=== PATIENT | male | born 1960 | race Caucasian/White ===

== ENCOUNTER 2019-03-08 20:27 | Emergency (ER) | payer BC, OTHER ==
[2019-03-08 20:54] LABS: Absolute Lymphocytes (CBC) 1.3 K/uL (0.7-4.9); Absolute Monocytes 0.2 K/uL (0.1-1.3); Absolute Neutrophil 2.5 K/uL (1.8-8.0); Eosinophils % 1.4 % (0-4.4); Hematocrit 38.6 % (39.6-49.0); Lymphocytes % 30.9 % (15.3-44.8); MPV 8.4 fL (7.6-11.3); Monocytes % 5.9 % (3.3-12.3); RBC Red Blood Cell Count 4.09 M/uL (4.33-5.43)
[2019-03-08 21:12] LABS: Protime INR 0.95
[2019-03-08] MEDS ORDERED: THIAMINE 200 MG/2 ML INJ ONE ×2 (21:21→22:38)
[2019-03-08] MEDS ORDERED: ONDANSETRON 4 MG/2 ML VIAL ONE (21:21)
[2019-03-08] MEDS ORDERED: NA CHLORIDE 0.9% 1,000 ML ONE ×2 (21:22→22:40)
[2019-03-08] MEDS ORDERED: FAMOTIDINE 20 MG/2 ML VIAL IV ONE (21:22)
[2019-03-08 21:23] LABS: Barbiturates NEGATIVE (NEGATIVE); Benzodiazepines NEGATIVE (NEGATIVE); Cocaine NEGATIVE (NEGATIVE); METHAMPHETAM NEGATIVE (NEGATIVE); Methadone NEGATIVE (NEGATIVE); Opiates NEGATIVE (NEGATIVE); Phencyclidine NEGATIVE (NEGATIVE); THC Cannibis NEGATIVE (NEGATIVE)
[2019-03-08 21:28] LABS: ALT/SGPT 32 U/L (12-78); Albumin 3.4 g/dL (3.4-5.0); Alkaline Phosphatase 46 U/L (45-117); BUN Blood Urea Nitrogen 10 mg/dL (7-18); Bicarbonate 21 mmol/L (21-32); Bilirubin Total 0.2 mg/dL (0.2-1.0); Glucose Level 113 mg/dL (74-106); NT PRO-BNP 13 pg/mL (<125); Protein, Total 6.5 g/dL (6.4-8.2); Sodium Level 148 mmol/L (136-145); Troponin (Emerg Dept Use Only) < 0.02 ng/mL (0.0-0.045)
[2019-03-08 21:29] LABS: AST/SGOT 36 U/L (15-37); Bilirubin Direct < 0.1 mg/dL (0-0.2); Magnesium 2.3 mg/dL (1.8-2.4); Potassium 3.4 mmol/L (3.5-5.1)
--- NOTE | 2019-03-08 22:32 | ER ---
Nurse's Notes [facility] Name: Gregg Olea Age: 58 yrs Sex: Male : 1960 Arrival Date: 03/08/2019 Time: 20:31 Bed 20 Private MD: Diagnosis: Suicidal ideations;Alcohol abuse;Alcohol abuse with intoxication Presentation: 03/08 20:33 Presenting complaint: EMS states: they were toned out for report of pt being drunk and bb taking 4 mgs of klonopin in a suicide attempt according to pt' spouse. Transition of care: patient was not received from another setting of care. Onset of symptoms was March 08, 2019. Risk Assessment: Do you want to hurt yourself or someone else? Patient reports desire/thoughts of hurting themselves or someone else. Provider notified. Initial Sepsis Screen: Does the patient meet any 2 criteria? No. Patient's initial sepsis screen is negative. Does the patient have a suspected source of infection? No. Patient's initial sepsis screen is negative. Care prior to arrival: Medication(s) given: Normal saline infusion, 1000 mL, zofran 4 mg, IV initiated. 18 GA, in the right forearm. 20:33 Method Of Arrival: EMS: [facility] bb 20:33 Acuity: EMILY 2 bb Historical: - Allergies: 20:56 Red Dye; bb - Home Meds: 22:20 Klonopin Oral [Active]; bb - PMHx: 22:20 Hypertension; anxiety; bb - PSHx: 20:56 acl; rotator cuff; bb - Immunization history:: Adult Immunizations unknown. - Social history:: Smoking status: unknown Patient uses alcohol, patient/guardian reports chronic longstanding heavy alcohol consumption. patient/guardian reports recent binge of alcohol consumption. - Family history:: not pertinent. - Ebola Screening: : No symptoms or risks identified at this time. Screenin:23 Abuse screen: Denies threats or abuse. Denies injuries from another. Nutritional ak1 screening: No deficits noted. Tuberculosis screening: No symptoms or risk factors identified. Fall Risk IV access (20 points). Gait- Impaired (20 pts.). Assessment: 21:23 General: Appears in no apparent distress. comfortable, Behavior is drowsy, non verbal ak1 at this time.. Pain: Denies pain. Neuro: Level of Consciousness is obeys commands, lethargic, Oriented to person, place, situation, pt answers 'yes and no" questions via nod and shaking his head. pt is very lethargic. . Cardiovascular: No deficits noted. Respiratory: Airway is patent Trachea midline Respiratory effort is even, unlabored, relaxed, Breath sounds are clear bilaterally. GI: Abdomen is round non-distended, Bowel sounds present X 4 quads. Abd is soft and non tender X 4 quads. : No signs and/or symptoms were reported regarding the genitourinary system. EENT: No signs and/or symptoms were reported regarding the EENT system. Derm: No signs and/or symptoms reported regarding the dermatologic system. Musculoskeletal: No signs and/or symptoms reported regarding the musculoskeletal system. 21:31 Reassessment: pt non verbal, responded with head nod when asked if he took pills and ak1 had alcohol to harm himself. sitter at bedside. 21:38 Reassessment: poison control contacted. recommended to watch for [employer] depression and ak1 respiratory depression. keep head of bed elevated. 22:08 Reassessment: Patient appears in no apparent distress at this time. No changes from ak1 previously documented assessment. family at the bedside. 23:09 Reassessment: pt stated to this nurse he "wants to " pt at bedside shows a ak1 photo of pt naked with alcohol, pills and a shot gun at the bedside. pt wants help. pt is tearful. pt is awake and alert with slurred slow speech. 23:18 Reassessment: Patient and/or family updated on plan of care and expected duration. Pain ed1 level reassessed. Pt moved via stretcher to room 20. at bedside. Sitter accompanied pt. Patient denies pain at this time. Neuro: Level of Consciousness is obeys commands, lethargic, Oriented to person. Respiratory: Airway is patent Respiratory effort is even, unlabored, Respiratory pattern is regular, symmetrical. 03/09 00:38 Reassessment: Patient appears in no apparent distress at this time. Patient and/or ed1 family updated on plan of care and expected duration. Pain level reassessed. Patient is alert, oriented x 3, equal unlabored respirations, skin warm/dry/pink. Patient denies pain at this time. 02:17 Reassessment: Patient appears in no apparent distress at this time. Patient and/or ed1 family updated on plan of care and expected duration. Pain level reassessed. Patient is alert, oriented x 3, equal unlabored respirations, skin warm/dry/pink. Patient denies pain at this time. Respiratory: Airway is patent Respiratory effort is even, unlabored, Respiratory pattern is regular, symmetrical, Breath sounds are clear bilaterally. 02:22 Reassessment: Spoke with Rosey at [facility], update give on pt's status. ed1 05:08 Reassessment: Patient appears in no apparent distress at this time. Patient and/or ed1 family updated on plan of care and expected duration. Pain level reassessed. Patient is alert, oriented x 3, equal unlabored respirations, skin warm/dry/pink. Pt cleared for PO intake per Dr. Lee Patient denies pain at this time. 06:34 Reassessment: Patient appears in no apparent distress at this time. Patient and/or ed1 family updated on plan of care and expected duration. Pain level reassessed. Patient is alert, oriented x 3, equal unlabored respirations, skin warm/dry/pink. Patient denies pain at this time. 07:00 Reassessment: RECD REPORT FROM AMY PICKETT. 58YO WM P/W ETOHISM AND SI. NS INFUSING, PSYCH bp TRANSFER PENDING. 07:18 Reassessment: REPORT TO LIZZIE PICKETT AT [facility] [place], . bp 07:30 Reassessment: REPORT TO VENU AT [facility]. bp 07:34 Reassessment: report given to PIYUSH Prieto at [facility]. iw 08:22 Reassessment: REPORT TO [facility]. PT ACCEPTED FOR TRANSFER. TRANSPORT PENDING. bp 08:56 Reassessment: PT NOW REFUSING TRANSFER, SPOKE WITH PROVIDER. [facility]. 09:39 Reassessment: [facility] B/S FOR TRANSPORT OF PT TO [facility]. bp Vital Signs: 03/08 20:56 BP 112 / 74; Pulse 95; Resp 14 S; Temp 97.6(A); Pulse Ox 93% on R/A; bb 21:34 BP 130 / 72; Pulse 81; Resp 20; Pulse Ox 98% on 2 lpm NC; Weight 99.79 kg (R); Height 6 ak1 ft. 2 in. (187.96 cm); Pain 0/10; 22:08 BP 126 / 81; Pulse 84; Resp 16; Pulse Ox 98% on 2 lpm NC; Pain 0/10; ak1 22:48 BP 124 / 66; Pulse 76; Resp 13; Pulse Ox 98% on R/A; jd2 /16 00:38 BP 140 / 88; Pulse 77; Resp 16; Pulse Ox 98% on R/A; Pain 0/10; ed1 02:17 BP 133 / 79; Pulse 83; Resp 16; Pulse Ox 99% on R/A; Pain 0/10; ed1 03:47 BP 119 / 65; Pulse 93; Resp 18; Pulse Ox 97% on R/A; jd2 05:08 BP 139 / 90; Pulse 81; Resp 14; Temp 97.8(TE); Pulse Ox 100% on R/A; Pain 0/10; ed1 06:34 BP 127 / 71; Pulse 90; Resp 18; Pulse Ox 98% on 2 lpm NC; Pain 0/10; ed1 07:17 BP 127 / 71; Pulse 84; Resp 20; Temp 98.1; Pulse Ox 96% 2 lpm ; fm2 07:17 Pain 0/10; fm2 08:21 BP 118 / 52; Pulse 99; Resp 23; Temp 98; Pulse Ox 99% ; bp 06/15 21:34 Body Mass Index 28.25 (99.79 kg, 187.96 cm) ak1 Lisset Coma Score: 03/08 21:23 Eye Response: to voice(3). Verbal Response: incomprehensible(2). Motor Response: obeys ak1 commands(6). Total: 11. 03/09 02:22 Eye Response: spontaneous(4). Verbal Response: oriented(5). Motor Response: obeys ed1 commands(6). Total: 15. ED Course: 03/08 20:31 Patient arrived in ED. rachell 20:31 William Lee MD is Attending Physician. aziza 20:40 Arm band placed on Patient placed in an exam room, on a stretcher, on deposition reporter, bb on pulse oximetry. EKG completed in triage. Results shown to MD. 20:40 Straight cath inserted, using sterile technique, 16 Fr. Specimen obtained. Patient bb tolerated well. 20:40 Urine collected: straight cath specimen. bb 20:55 Luann Osuna, RN is Primary Nurse. ak1 20:56 Triage completed. bb 21:13 XRAY Chest (1 view) In Process Unspecified. EDMS 21:23 Patient has correct armband on for positive identification. Placed in gown. Bed in low ak1 position. Call light in reach. Side rails up X2. Adult w/ patient. Door closed. Warm blanket given. 21:30 Initial lab(s) drawn, by me, sent to lab. EKG done, by ED staff, reviewed by iWlliam Lee MD. Inserted saline lock: 20 gauge in right forearm, using aseptic technique. Blood collected. Maintain EMS IV. Dressing intact. Good blood return noted. Site clean \\T\\ dry. Gauge \\T\\ site: 18 right wrist. 21:38 Safety checks: Items removed: yes. Door open/sign placed on door: yes. Family/friend jd2 present: yes. Sitter present: Yes. 21:45 Safety checks: Items removed: yes. Door open/sign placed on door: yes. Family/friend jd2 present: yes. Sitter present: Yes. 21:52 No provider procedures requiring assistance completed. ak1 21:59 Safety checks: Items removed: yes. Door open/sign placed on door: yes. Family/friend jd2 present: yes. Sitter present: Yes. 22:15 Safety checks: Items removed: yes. Door open/sign placed on door: yes. Family/friend jd2 present: yes. Sitter present: Yes. 22:29 Safety checks: Items removed: yes. Door open/sign placed on door: yes. Family/friend jd2 present: yes. Sitter present: Yes. 22:45 Safety checks: Items removed: yes. Door open/sign placed on door: yes. Family/friend jd2 present: yes. Sitter present: Yes. 23:00 Safety checks: Items removed: yes. Door open/sign placed on door: yes. Family/friend jd2 present: yes. Sitter present: Yes. 23:15 Safety checks: Items removed: yes. Door open/sign placed on door: yes. Family/friend jd2 present: yes. Sitter present: Yes. 23:18 Report received from Luann Osuna RN. ed1 23:30 Safety checks: Items removed: yes. Door open/sign placed on door: no. Family/friend jd2 present: yes. Sitter present: Yes. 23:38 Primary Nurse role handed off by Luann Osuna RN ed1 23:38 Mary Dorado, PIYUSH is Primary Nurse. ed1 23:45 Safety checks: Items removed: yes. Door open/sign placed on door: no. Family/friend jd2 present: yes. Sitter present: Yes. 0616 00:00 Safety checks: Items removed: yes. Door open/sign placed on door: no. Family/friend jd2 present: yes. Sitter present: Yes. 00:15 Safety checks: Items removed: yes. Door open/sign placed on door: no. Family/friend jd2 present: yes. Sitter present: Yes. 00:23 Safety checks: Items removed: yes. Door open/sign placed on door: no. Family/friend jd2 present: yes. Sitter present: Yes. 00:30 Safety checks: Items removed: yes. Door open/sign placed on door: no. Family/friend jd2 present: yes. Sitter present: Yes. 00:34 PO fluids given. ed1 00:45 Safety checks: Items removed: yes. Door open/sign placed on door: no. Family/friend jd2 present: yes. Sitter present: Yes. 01:00 Safety checks: Items removed: yes. Door open/sign placed on door: no. Family/friend jd2 present: yes. Sitter present: Yes. 01:15 Safety checks: Items removed: yes. Door open/sign placed on door: no. Family/friend jd2 present: yes. Sitter present: Yes. 01:30 Safety checks: Items removed: yes. Door open/sign placed on door: no. Family/friend jd2 present: yes. Sitter present: Yes. 01:[address] jd2 02:17 Safety checks: Items removed: yes. Door open/sign placed on door: yes. Family/friend jd2 present: yes. Sitter present: Yes. 02:24 Assisted with urinal. ed1 02:30 Safety checks: Items removed: yes. Door open/sign placed on door: yes. Family/friend jd2 present: yes. Sitter present: Yes. 02:45 Safety checks: Items removed: yes. Door open/sign placed on door: yes. Family/friend jd2 present: yes. Sitter present: Yes. 03:01 Safety checks: Items removed: yes. Door open/sign placed on door: yes. Family/friend jd2 present: no. Sitter present: Yes. 03:15 Safety checks: Items removed: yes. Door open/sign placed on door: no. Family/friend jd2 present: no. Sitter present: Yes. 03:30 Safety checks: Items removed: yes. Door open/sign placed on door: no. Family/friend jd2 present: no. Sitter present: Yes. 03:45 Safety checks: Items removed: yes. Door open/sign placed on door: no. Family/friend jd2 present: no. Sitter present: Yes. 04:00 Safety checks: Items removed: yes. Door open/sign placed on door: yes. Family/friend jd2 present: yes. Sitter present: Yes. 04:15 Safety checks: Items removed: yes. Door open/sign placed on door: yes. Family/friend jd2 present: yes. Sitter present: Yes. 04:25 CT Aorta for Dissection In Process Unspecified. EDMS 04:30 Safety checks: Items removed: yes. Door open/sign placed on door: yes. Family/friend jd2 present: yes. Sitter present: Yes. 04:45 Safety checks: Items removed: yes. Door open/sign placed on door: yes. Family/friend jd2 present: yes. Sitter present: Yes. 05:00 Safety checks: Items removed: yes. Door open/sign placed on door: yes. Family/friend jd2 present: yes. Sitter present: Yes. 05:15 Safety checks: Items removed: yes. Door open/sign placed on door: yes. Family/friend jd2 present: yes. Sitter present: Yes. 05:30 Safety checks: Items removed: yes. Door open/sign placed on door: yes. Family/friend jd2 present: yes. Sitter present: Yes. 05:45 Safety checks: Items removed: yes. Door open/sign placed on door: yes. Family/friend jd2 present: yes. Sitter present: Yes. 06:00 Safety checks: Items removed: yes. Door open/sign placed on door: yes. Family/friend jd2 present: yes. Sitter present: Yes. 06:15 Safety checks: Items removed: yes. Door open/sign placed on door: no. Family/friend jd2 present: yes. Sitter present: Yes. 06:31 Safety checks: Items removed: yes. Door open/sign placed on door: yes. Family/friend jd2 present: yes. Sitter present: Yes. 06:45 Safety checks: Items removed: yes. Door open/sign placed on door: no. Family/friend jd2 present: yes. Sitter present: Yes. 07:00 Primary Nurse role handed off by Mary Dorado, PIYUSH ed1 07:00 Safety Checks: Personal items have been removed. The door is open or patient has been bp placed in a hallway bed/chair. A family member and/or friend is present and encouraged to stay. Sitter present at this time. 07:02 Julien Campo, PIYUSH is Primary Nurse. bp 07:06 Safety Checks: Personal items have been removed. The door is open or patient has been fm2 placed in a hallway bed/chair. A family member and/or friend is present and encouraged to stay. Sitter present at this time. 07:15 Safety Checks: Personal items have been removed. The door is open or patient has been bp placed in a hallway bed/chair. A family member and/or friend is present and encouraged to stay. Sitter present at this time. 07:30 Safety Checks: Personal items have been removed. The door is open or patient has been bp placed in a hallway bed/chair. A family member and/or friend is present and encouraged to stay. Sitter present at this time. 07:43 Safety Checks: Personal items have been removed. The door is open or patient has been fm2 placed in a hallway bed/chair. A family member and/or friend is present and encouraged to stay. Sitter present at this time. 07:45 Safety Checks: Personal items have been removed. The door is open or patient has been bp placed in a hallway bed/chair. A family member and/or friend is present and encouraged to stay. Sitter present at this time. 07:48 Praveen Russ PA is PHCP. [email or web address] 08:00 Safety Checks: Personal items have been removed. The door is open or patient has been bp placed in a hallway bed/chair. A family member and/or friend is present and encouraged to stay. Sitter present at this time. 08:02 Safety Checks: Personal items have been removed. The door is open or patient has been fm2 placed in a hallway bed/chair. A family member and/or friend is present and encouraged to stay. Sitter present at this time. 08:15 Safety Checks: Personal items have been removed. The door is open or patient has been bp placed in a hallway bed/chair. A family member and/or friend is present and encouraged to stay. Sitter present at this time. 08:22 IV discontinued, intact, bleeding controlled, No redness/swelling at site. Pressure bp dressing applied. 08:33 Safety Checks: Personal items have been removed. The door is open or patient has been fm2 placed in a hallway bed/chair. A family member and/or friend is present and encouraged to stay. Sitter present at this time. 08:45 Safety Checks: Personal items have been removed. The door is open or patient has been fm2 placed in a hallway bed/chair. A family member and/or friend is present and encouraged to stay. Sitter present at this time. 09:00 Safety Checks: Personal items have been removed. The door is open or patient has been fm2 placed in a hallway bed/chair. A family member and/or friend is present and encouraged to stay. Sitter present at this time. 09:15 Safety Checks: Personal items have been removed. The door is open or patient has been fm2 placed in a hallway bed/chair. A family member and/or friend is present and encouraged to stay. Sitter present at this time. 09:30 Safety Checks: Personal items have been removed. The door is open or patient has been fm2 placed in a hallway bed/chair. A family member and/or friend is present and encouraged to stay. Sitter present at this time. 09:45 Safety Checks: Personal items have been removed. The door is open or patient has been fm2 placed in a hallway bed/chair. A family member and/or friend is present and encouraged to stay. Sitter present at this time. Administered Medications: 03/08 21:21 Drug: Zofran 4 mg Route: IVP; Site: right forearm; ak1 22:27 Follow up: Response: No adverse reaction ak1 21:22 Drug: NS 0.9% 1000 ml Route: IV; Rate: 1 bolus; Site: right forearm; ak1 22:18 Follow up: IV Status: Completed infusion; IV Intake: 1000ml ; 100mL NS bolus via EMS PTAak1 21:22 Drug: Thiamine 100 mg Route: IV; Rate: bolus; Site: right forearm; ak1 23:22 Follow up: IV Status: Completed infusion; IV Intake: 100ml ak1 21:22 Drug: Pepcid 20 mg Route: IVP; Site: right forearm; ak1 22:27 Follow up: Response: No adverse reaction ak1 22:35 Drug: Banana Bag - (NS 0.9% 1000 ml, foLIC Acid 1 mg, Thiamine 100 mg, Multivitamin 1 ak1 amp) Route: IV; Rate: 200 ml/hr; Site: right forearm; 03/09 04:57 Follow up: Response: No adverse reaction; IV Status: Completed infusion; IV Intake: ed1 1000ml 03/08 22:35 Drug: Potassium Chloride 20 mEq Route: IV; Rate: per protocol; Site: right forearm; ak1 23:51 Follow up: IV Status: Completed infusion; IV Intake: 100ml ed1 22:35 Drug: Magnesium Sulfate 1 grams Route: IVPB; Infused Over: 1 hrs; Site: right forearm; ak1 23:51 Follow up: Response: No adverse reaction; IV Status: Completed infusion ed1 23:06 CANCELLED (Physician Discretion; pt received 2000mL already): NS 0.9% 1000 ml IV at 1 ak1 bolus Per protocol; 1000 mL bolus 03/09 05:06 Drug: NS 0.9% 1000 ml Route: IV; Rate: 150 ml/hr; Site: right hand; ed1 09:41 Follow up: IV Status: Completed infusion; IV Intake: 750ml bp Intake: 03/08 22:18 IV: 1000ml; Total: 1000ml. ak1 23:22 IV: 100ml; Total: 1100ml. ak1 23:51 IV: 100ml; Total: 1200ml. ed1 16 04:57 IV: 1000ml; Total: 2200ml. ed1 09:41 IV: 750ml; Total: 2950ml. bp Output: 02:37 Urine: 900ml (Voided); Total: 900ml. jd2 Outcome: 03/08 22:32 ER care complete, transfer ordered by MD. ervin 03/09 09:40 Transferred [facility]. Note: [place] bp 09:41 Condition: stable bp 10:04 Patient left the ED. bp Signatures: Dispatcher [employer] EDMS William Lee MD MD cha Ballard, Brenda, RN RN bb Janice Lester RN RN Mary Dorado RN RN ed1 Praveen Russ PA PA 8 Luann Osuna RN RN ak1 Adolfo Hassan jd2 Julien Campo RN RN bp [place], [place] 2 Corrections: (The following items were deleted from the chart) 03/08 22:19 20:33 Presenting complaint: EMS states: they were toned out for report of pt being bb drunk and taking 4 mgs of clonazepam in a suicide attempt according to pt' spouse bb 22: 20:56 Home Meds: Unable to obtain; bb 22:20 20:56 PMHx: Unable to obtain; bb 23:01 22:58 Safety checks: Items removed: yes. Door open/sign placed on door: yes. jd2 Family/friend present: yes. Sitter present: Yes. jd2 03/09 00:01 03/08 23:59 Safety checks: Items removed: yes. Door open/sign placed on door: no. jd2 Family/friend present: yes. Sitter present: Yes. jd2 03/09 06:51 06:34 BP 127 / 71; Pulse 90bpm; Resp 18bpm; Pulse Ox 98% RA; Pain 0/10; ed1 ed1 09:41 08:23 Instructed on the need for transfer, bp bp 09:41 08:23 Condition: stable bp bp 09:41 08:23 Transferred by ground EMS Note: [place] bp bp
--- NOTE | 2019-03-08 22:32 | EDPHYS ---
Physician Documentation [facility] Name: Gregg Olea Age: 58 yrs Sex: Male : 1960 Arrival Date: 03/08/2019 Time: 20:31 Bed 20 Private MD: ED Physician William Lee HPI: 03/08 20:38 This 58 yrs old Male presents to ER via Unassigned with complaints of aziza intoxicated, alcohol and klonipin . 20:38 known alcoholic. The patient presents with confusion, decreased mental status, trouble aziza concentrating. Onset: The symptoms/episode began/occurred just prior to arrival, today. Possible causes: drug use, benzodiazepines, alcohol. Associated signs and symptoms: Pertinent positives: dizziness, gait abnormality. Current symptoms: In the emergency department the patient's symptoms are unchanged from the initial presentation. Patient's baseline: Neuro: alert and fully oriented. Severity of symptoms: At their worst the symptoms were. Historical: - Allergies: 20:56 Red Dye; bb - Home Meds: 22:20 Klonopin Oral [Active]; bb - PMHx: 22:20 Hypertension; anxiety; bb - PSHx: 20:56 acl; rotator cuff; bb - Immunization history:: Adult Immunizations unknown. - Social history:: Smoking status: unknown Patient uses alcohol, patient/guardian reports chronic longstanding heavy alcohol consumption. patient/guardian reports recent binge of alcohol consumption. - Family history:: not pertinent. - Ebola Screening: : No symptoms or risks identified at this time. ROS: 20:38 Constitutional: Negative for fever, chills, and weight loss, Eyes: Negative for injury, aziza pain, redness, and discharge, ENT: Negative for injury, pain, and discharge, Neck: Negative for injury, pain, and swelling, Cardiovascular: Negative for chest pain, palpitations, and edema, Respiratory: Negative for shortness of breath, cough, wheezing, and pleuritic chest pain, Abdomen/GI: Negative for abdominal pain, nausea, vomiting, diarrhea, and constipation, Back: Negative for injury and pain, : Negative for injury, bleeding, discharge, and swelling, MS/Extremity: Negative for injury and deformity, Skin: Negative for injury, rash, and discoloration, Psych: Negative for depression, anxiety, suicide ideation, homicidal ideation, and hallucinations, Allergy/Immunology: Negative for hives, rash, and allergies, Endocrine: Negative for neck swelling, polydipsia, polyuria, polyphagia, and marked weight changes, Hematologic/Lymphatic: Negative for swollen nodes, abnormal bleeding, and unusual bruising. 20:38 Neuro: Positive for speech changes, weakness. Exam: 20:38 Head/Face: Normocephalic, atraumatic. Eyes: Pupils equal round and reactive to light, aziza extra-ocular motions intact. Lids and lashes normal. Conjunctiva and sclera are non-icteric and not injected. Cornea within normal limits. Periorbital areas with no swelling, redness, or edema. ENT: Nares patent. No nasal discharge, no septal abnormalities noted. Tympanic membranes are normal and external auditory canals are clear. Oropharynx with no redness, swelling, or masses, exudates, or evidence of obstruction, uvula midline. Mucous membranes moist. Neck: Trachea midline, no thyromegaly or masses palpated, and no cervical lymphadenopathy. Supple, full range of motion without nuchal rigidity, or vertebral point tenderness. No Meningismus. Chest/axilla: Normal chest wall appearance and motion. Nontender with no deformity. No lesions are appreciated. Cardiovascular: Regular rate and rhythm with a normal S1 and S2. No gallops, murmurs, or rubs. Normal PMI, no JVD. No pulse deficits. Respiratory: Lungs have equal breath sounds bilaterally, clear to auscultation and percussion. No rales, rhonchi or wheezes noted. No increased work of breathing, no retractions or nasal flaring. Abdomen/GI: Soft, non-tender, with normal bowel sounds. No distension or tympany. No guarding or rebound. No evidence of tenderness throughout. Back: No spinal tenderness. No costovertebral tenderness. Full range of motion. Male : Normal genitalia with no discharge or lesions. Skin: Warm, dry with normal turgor. Normal color with no rashes, no lesions, and no evidence of cellulitis. MS/ Extremity: Pulses equal, no cyanosis. Neurovascular intact. Full, normal range of motion. Psych: Awake, alert, with orientation to person, place and time. Behavior, mood, and affect are within normal limits. 20:38 Constitutional: The patient appears lethargic, smells of alcohol. 20:38 Neuro: Orientation: unable to test, Mentation: slow to respond, confused, Memory: unable to test, Cranial nerves: is grossly normal based on the patient's age, Cerebellar function: unable to test, Motor: moves all fours, Sensation: no obvious gross deficits, appropriate Gait: not tested. seizure activity, is not displayed by the patient. Vital Signs: 20:56 BP 112 / 74; Pulse 95; Resp 14 S; Temp 97.6(A); Pulse Ox 93% on R/A; bb 21:34 BP 130 / 72; Pulse 81; Resp 20; Pulse Ox 98% on 2 lpm NC; Weight 99.79 kg (R); Height 6 ak1 ft. 2 in. (187.96 cm); Pain 0/10; 22:08 BP 126 / 81; Pulse 84; Resp 16; Pulse Ox 98% on 2 lpm NC; Pain 0/10; ak1 22:48 BP 124 / 66; Pulse 76; Resp 13; Pulse Ox 98% on R/A; jd2 06/16 00:38 BP 140 / 88; Pulse 77; Resp 16; Pulse Ox 98% on R/A; Pain 0/10; ed1 02:17 BP 133 / 79; Pulse 83; Resp 16; Pulse Ox 99% on R/A; Pain 0/10; ed1 03:47 BP 119 / 65; Pulse 93; Resp 18; Pulse Ox 97% on R/A; jd2 05:08 BP 139 / 90; Pulse 81; Resp 14; Temp 97.8(TE); Pulse Ox 100% on R/A; Pain 0/10; ed1 06:34 BP 127 / 71; Pulse 90; Resp 18; Pulse Ox 98% on 2 lpm NC; Pain 0/10; ed1 07:17 BP 127 / 71; Pulse 84; Resp 20; Temp 98.1; Pulse Ox 96% 2 lpm ; fm2 07:17 Pain 0/10; fm2 08:21 BP 118 / 52; Pulse 99; Resp 23; Temp 98; Pulse Ox 99% ; bp 15 21:34 Body Mass Index 28.25 (99.79 kg, 187.96 cm) ak1 Burnside Coma Score: 03/08 21:23 Eye Response: to voice(3). Verbal Response: incomprehensible(2). Motor Response: obeys ak1 commands(6). Total: 11. 03/09 02:22 Eye Response: spontaneous(4). Verbal Response: oriented(5). Motor Response: obeys ed1 commands(6). Total: 15. MDM: 03/08 20:31 Patient medically screened. [facility] 20:42 Data reviewed: vital signs, nurses notes, lab test result(s), EKG, radiologic studies, [facility] plain films. 03/09 07:47 Data interpreted: Pulse oximetry: on room air is 96 %. Interpretation: normal. jr8 Counseling: I had a detailed discussion with the patient and/or guardian regarding: the historical points, exam findings, and any diagnostic results supporting the discharge/admit diagnosis, lab results, radiology results, the need to transfer to another facility, [facility] does not immediately have the required specialist. ED course: Consulted with a Dr. Mckeon with [facility]. Accepted patient . 07:53 ED course: Dr. Quiroz with [facility] consulted and also accepted patient for jr8 further psych evaluation and detox from alcohol. 03/08 20:37 Order name: Basic Metabolic Panel [facility] 03/08 20:37 Order name: CBC with Diff [facility] 03/08 20:37 Order name: LFT's [facility] 03/08 20:37 Order name: Magnesium; Complete Time: 22:17 [facility] 03/08 20:37 Order name: NT PRO-BNP; Complete Time: 22:17 [facility] 03/08 20:37 Order name: PT-INR; Complete Time: 21:30 [facility] 03/08 20:37 Order name: Troponin (emerg Dept Use Only); Complete Time: 22:17 [facility] 03/08 20:37 Order name: Acetaminophen; Complete Time: 22:17 [facility] 03/08 20:37 Order name: ETOH Level; Complete Time: 21:30 [facility] 03/08 20:37 Order name: Ptt, Activated; Complete Time: 21:30 [facility] 03/08 20:37 Order name: Salicylate; Complete Time: 22:17 [facility] 03/08 20:37 Order name: Urine Drug Screen; Complete Time: 21:30 [facility] 03/08 20:38 Order name: Basic Metabolic Panel; Complete Time: 22:17 [facility] 03/08 20:38 Order name: CBC with Automated Diff; Complete Time: 21:30 [facility] 03/08 20:37 Order name: XRAY Chest (1 view); Complete Time: 04:21 [facility] 03/08 20:37 Order name: EKG; Complete Time: 20:39 [facility] 03/08 20:38 Order name: Liver (Hepatic) Function; Complete Time: 22:17 [facility] 03/09 00:00 Order name: CT Aorta for Dissection [facility] 03/09 02:45 Order name: ETOH Level; Complete Time: 04:21 ar5 03/09 04:21 Order name: Chem 7; Complete Time: 05:40 [facility] 03/09 04:21 Order name: CBC w/o diff; Complete Time: 05:40 [facility] 03/08 20:37 Order name: Cardiac monitoring; Complete Time: 20:56 [facility] 03/08 20:37 Order name: EKG - Nurse/Tech; Complete Time: 20:56 [facility] 03/08 20:37 Order name: IV Saline Lock; Complete Time: 20:56 [facility] 03/08 20:37 Order name: Labs collected and sent; Complete Time: 20:56 [facility] 03/08 20:37 Order name: O2 Per Protocol; Complete Time: 20:56 [facility] 03/08 20:37 Order name: O2 Sat Monitoring; Complete Time: 21:01 [facility] 03/08 20:37 Order name: Urine Dipstick-Ancillary (obtain specimen); Complete Time: 20:55 [facility] 03/09 05:41 Order name: Diet Regular; Complete Time: 05:43 [facility] Administered Medications: 03/08 21:21 Drug: Zofran 4 mg Route: IVP; Site: right forearm; ak1 22:27 Follow up: Response: No adverse reaction ak1 21:22 Drug: NS 0.9% 1000 ml Route: IV; Rate: 1 bolus; Site: right forearm; ak1 22:18 Follow up: IV Status: Completed infusion; IV Intake: 1000ml ; 100mL NS bolus via EMS PTAak1 21:22 Drug: Thiamine 100 mg Route: IV; Rate: bolus; Site: right forearm; ak1 23:22 Follow up: IV Status: Completed infusion; IV Intake: 100ml ak1 21:22 Drug: Pepcid 20 mg Route: IVP; Site: right forearm; ak1 22:27 Follow up: Response: No adverse reaction ak1 22:35 Drug: Banana Bag - (NS 0.9% 1000 ml, foLIC Acid 1 mg, Thiamine 100 mg, Multivitamin 1 ak1 amp) Route: IV; Rate: 200 ml/hr; Site: right forearm; 03/09 04:57 Follow up: Response: No adverse reaction; IV Status: Completed infusion; IV Intake: ed1 1000ml 03/08 22:35 Drug: Potassium Chloride 20 mEq Route: IV; Rate: per protocol; Site: right forearm; ak1 23:51 Follow up: IV Status: Completed infusion; IV Intake: 100ml ed1 22:35 Drug: Magnesium Sulfate 1 grams Route: IVPB; Infused Over: 1 hrs; Site: right forearm; ak1 23:51 Follow up: Response: No adverse reaction; IV Status: Completed infusion ed1 23:06 CANCELLED (Physician Discretion; pt received 2000mL already): NS 0.9% 1000 ml IV at 1 ak1 bolus Per protocol; 1000 mL bolus 03/09 05:06 Drug: NS 0.9% 1000 ml Route: IV; Rate: 150 ml/hr; Site: right hand; ed1 09:41 Follow up: IV Status: Completed infusion; IV Intake: 750ml bp Disposition: 03/10 07:38 Co-signature as Attending Physician, William Lee MD I agree with the assessment and [facility] plan of care. Disposition: 03/08/19 22:32 Transfer ordered to Psych Facility. Diagnosis are Suicidal ideations, Alcohol abuse, Alcohol abuse with intoxication. - Reason for transfer: Higher level of care. - Accepting physician is to psych. - Condition is Fair. - Problem is new. - Symptoms have improved. Signatures: Dispatcher [employer] William Estrada MD MD cha Ballard, Brenda, RN RN Mary Baxter RN RN ed1 Praveen Russ PA PA jr8 Luann Osuna RN RN ak1 Julien Campo RN RN bp Corrections: (The following items were deleted from the chart) 03/08 22:20 20:56 Home Meds: Unable to obtain; bb bb 22:20 20:56 PMHx: Unable to obtain; rachell bb 23:06 22:21 NS 0.9% 1000 ml IV at 1 bolus Per protocol; 1000 mL bolus ordered. aziza [facility] 03/09 10:04 03/08 22:32 03/08/2019 22:32 Transfer ordered to Psych Facility. Diagnosis is Suicidal bp ideations; Alcohol abuse; Alcohol abuse with intoxication. Reason for transfer: Higher level of care. Accepting physician is to psych. Condition is Fair. Problem is new. Symptoms have improved. aziza
[2019-03-08] MEDS ORDERED: MAGNESIUM SULFATE 1 gm IVPB 1 GM/100 ML BAG IV ONE (22:38)
[2019-03-08] MEDS ORDERED: FOLIC ACID 5 MG/ML VIAL ONE (22:39)
[2019-03-08] MEDS ORDERED: MULTIVITAMINS 10 ML VIAL (INJ) IV ONE (22:39)
[2019-03-08] MEDS ORDERED: KCL 20 MEQ/100 mL IVPB 20 MEQ/100 ML BAG IV ONE (22:40)
--- NOTE | 2019-03-08 23:51 | RAD REPORT ---
EXAM DESCRIPTION: Ebonie Single View03/08/2019 9:11 pm CLINICAL HISTORY: cough COMPARISON: 2010 FINDINGS: The lungs appear clear of acute infiltrate. The heart is normal size The mediastinum is widened IMPRESSION: Widened mediastinum. This may represent an aortic aneurysm or lymphadenopathy. A CT gen st with IV contrast recommended
[2019-03-09 04:55] LABS: Hematocrit 45.3 % (39.6-49.0); MPV 8.4 fL (7.6-11.3); RBC Red Blood Cell Count 4.85 M/uL (4.33-5.43)
[2019-03-09 05:05] LABS: Potassium 4.4 mmol/L (3.5-5.1)
[2019-03-09] MEDS ORDERED: NA CHLORIDE 0.9% 1,000 ML ONE (05:17)
--- NOTE | 2019-03-09 10:33 | EKG ---
Test Date: 2019-03-08 Test Time: 20:49:33 [employer]: [place] MEASUREMENT RESULTS: Intervals: Rate: 90 PA: 152 QRSD: 122 QT: 370 QTc: 452 [place]: P: 48 PA: 152 QRS: 24 T: 49 INTERPRETIVE STATEMENTS: Normal sinus rhythm Nonspecific intraventricular conduction delay Borderline ECG Compared to ECG 08/05/2003 15:27:00 Intraventricular conduction delay now present Sinus bradycardia no longer present Electronically Signed On 03-09-19 10:32:53 CDT by Manjeet Barrios
--- NOTE | 2019-03-10 11:27 | RAD REPORT ---
EXAM DESCRIPTION: CT - Angio Aorta For Dissection - 03/09/2019 6:13 am CLINICAL HISTORY: Chest and abdominal pain. COMPARISON: None Available. TECHNIQUE: CTA of the chest, abdomen and pelvis performed following IV administration of iodinated c ontrast. 3-D/MIP reformatted images available. DLP: 1062.4 mGycm FINDINGS: Chest: Thyroid: No abnormalities of the visualized thyroid. Great Vessels: Great vessels have normal anatomic configuration. Thoracic Aorta: Normal caliber of the thoracic aorta without evidence of dissection. Pulmonary arteries: No filling defects identified centrally. Heart: No cardiomegaly, significant pericardial effusion, or coronary artery atherosclerosis Lymph Nodes: No enlarged mediastinal lymph nodes identified. Esophagus: Small hiatal hernia. Other: No additional findings. Lungs: Minimal dependent atelectasis. No confluent airspace consolidation. Respiratory motion artifac t. Pleura: No pleural effusion or pneumothorax. Trachea/Airways: No abnormalities of the visualized trachea or airways. Abdomen: Liver: The liver has normal size and decreased density. No intrahepatic mass or biliary dilatation. Gallbladder: No calcified gallstones. Spleen, Pancreas, and Adrenal Glands: The spleen, pancreas, and adrenal glands are unremarkable. Kidneys: The kidneys have normal size and contour without evidence of solid mass or hydronephrosis. Vasculature: Normal caliber of the abdominal aorta with in-line flow into the common and external brayden ac arteries. Mild aortoiliac atherosclerotic calcification. The visceral and renal arteries are wid yves patent without evidence of flow-limiting stenosis. Internal iliac arteries are patent. No evidenc e of dissection. Stomach: Small hiatal hernia. Other: No free intraperitoneal air. No free fluid or lymphadenopathy. Pelvis: Bladder: Distention of the urinary bladder which is otherwise unremarkable. Bowel: No dilated loops of large or small bowel. Scattered diverticula colon. No pericolic inflamma tory change. Appendix: Normal appendix. Pelvis: Enlarged prostate. Bones: No destructive bone lesions identified. IMPRESSION: 1. No evidence of aortic dissection or aneurysm. 2. Model hernia. 3. Enlarged prostate. 4. Diverticulosis without evidence of acute diverticulitis. 5. Hepatic steatosis. This exam was performed according to our departmental dose-optimization program, which includes autom ated exposure control, adjustment of the mA and/or kV according to patient size and/or use of iterati ve reconstruction technique. Electronically signed by: Terrance Austin 03/09/2019 4:44 AM CDT Due to temporary technical issues with the PACS/Fluency reporting system, reports are being signed by the in house radiologist as a courtesy to ensure prompt reporting. The interpreting radiologist is f ully responsible for the content of the report.
== END 2019-03-09 10:04 ==
LOC: ER 20:27
DX: F10.229 Alcohol dependence with intoxication, unspecified (principal); I10 Essential (primary) hypertension; F41.9 Anxiety disorder, unspecified; Z91.02 Food additives allergy status
CPT/HCPCS: 36415; 51702; 71045; 71275; 74175; 80048; 80076; 80307; 80320; 80329; 83735; 83880; 84484; 85025; 85027; 85610; 85730; 93005; 96361; 96365; 96366; 96367; 96375; 99285; J2405; J3411; J3475; J7030; Q9967

== ENCOUNTER 2020-08-24 10:22 | Inpatient (IN) | payer BC ==
[2020-08-24 11:43] LABS: Absolute Lymphocytes (CBC) 0.4 K/uL (0.7-4.9); Basophils % 0.2 % (0-1.3); Hematocrit 42.5 % (39.6-49.0); Lymphocytes % 5.2 % (15.3-44.8); MPV 9.1 fL (7.6-11.3); RBC Red Blood Cell Count 4.76 M/uL (4.33-5.43)
[2020-08-24 11:49] LABS: Protime INR 1.19
[2020-08-24 12:23] LABS: ALT/SGPT 56 U/L (12-78); AST/SGOT 64 U/L (15-37); Alkaline Phosphatase 52 U/L (45-117); BUN Blood Urea Nitrogen 21 mg/dL (7-18); Bicarbonate 22 mmol/L (21-32); Bilirubin Direct 0.1 mg/dL (0-0.2); Bilirubin Total 0.6 mg/dL (0.2-1.0); Ferritin 1695.4 ng/mL (26-388); Glucose Level 121 mg/dL (74-106); Lipase 274 U/L (73-393); Potassium 3.7 mmol/L (3.5-5.1); Protein, Total 7.7 g/dL (6.4-8.2); Sodium Level 134 mmol/L (136-145); Troponin (Emerg Dept Use Only) < 0.02 ng/mL (0.0-0.045)
[2020-08-24] MEDS ORDERED: NA CHLORIDE 0.9% 1,000 ML ONE ×2 (12:23→17:46)
[2020-08-24 12:53] LABS: Blood Morphology Comment NOT SEEN (NOT SEEN); Platelet Estimate ADEQ; White Blood Cell Scan OK (OK)
--- NOTE | 2020-08-24 13:18 | RAD REPORT ---
EXAM DESCRIPTION: Ebonie Single View08/24/2020 12:39 pm CLINICAL HISTORY: Shortness of breath COMPARISON: 2019 FINDINGS: Moderate bilateral patchy lung opacities. The heart is normal size IMPRESSION: Moderate bilateral patchy lung opacities likely pneumonia
--- NOTE | 2020-08-24 13:32 | RAD REPORT ---
EXAM DESCRIPTION: CT - Chest For Pe Angio - 08/24/2020 12:51 pm CLINICAL HISTORY: Cough COMPARISON: August 24, 2020 chest x-ray TECHNIQUE: Dynamically enhanced axial 3 mm thick images of the chest were obtained during administra tion of <100> mL Isovue 370 IV contrast. Coronal and oblique reconstruction images were generated and reviewed. Exam utilizes a protocol for optimal evaluation of pulmonary arterial tree. Maximum intensity projections 3D imaging was utilized All CT scans are performed using dose optimization technique as appropriate and may include automated exposure control or mA/KV adjustment according to patient size. FINDINGS: A pulmonary embolus is not seen. A thoracic aortic aneurysm is not noted. The ascending aorta has an AP diameter of 3.9 centimeters Small pleural effusions. A pericardial effusion is not seen. Moderate bilateral ground-glass opacities within the lungs IMPRESSION: Negative for a pulmonary embolism. Moderate bilateral ground-glass opacities within the lungs can be seen with Covid pneumonia
--- NOTE | 2020-08-24 13:57 | ER ---
Nurse's Notes [facility] Name: Gregg Olea Age: 60 yrs Sex: Male : 1960 Arrival Date: 08/24/2020 Time: 10:22 Bed 8 Private MD: Diagnosis: Dyspnea;Pneumonia, unspecified organism-covid 19 bilateral pneumonia;Hypoxemia Presentation: 08/24 10:49 Chief complaint: Patient states: dx with COVID on Sunday at [facility]. Reports SOB has sv gotten worse for the last 4-5 days. Coronavirus screen: Client denies travel out of the [place] in the last 14 days. Client reports previous positive COVID test result. Date of collection: August 23, 2020 Symptoms started 08/21/20. Ebola Screen: No symptoms or risks identified at this time. Risk Assessment: Do you want to hurt yourself or someone else? Patient reports no desire to harm self or others. Onset of symptoms was August 21, 2020. 10:49 Method Of Arrival: Ambulatory sv 10:49 Acuity: EMILY 2 sv 10:51 Initial Sepsis Screen: Does the patient meet any 2 criteria? RR > 20 per min. No. sv Patient's initial sepsis screen is negative. Does the patient have a suspected source of infection? Yes: Productive cough/pneumonia. Triage Assessment: 20:55 Respiratory: Onset: The symptoms/episode began/occurred gradually. wh Historical: - Allergies: 10:51 Red Dye; sv 10:51 Codeine; sv - Home Meds: 11:05 None [Active]; tw2 - PMHx: 10:51 Anxiety; Hypertension; sv - PSHx: 10:51 acl; rotator cuff; sv - Immunization history:: Adult Immunizations up to date, Flu vaccine is not up to date. - Social history:: Smoking status: Patient denies any tobacco usage or history of. Screenin:58 Abuse screen: Denies threats or abuse. Nutritional screening: No deficits noted. em Tuberculosis screening: No symptoms or risk factors identified. Fall Risk None identified. Assessment: 11:05 Cardiovascular: Rhythm is sinus rhythm. tw2 11:10 General: Appears in no apparent distress. uncomfortable, Behavior is calm, cooperative, em appropriate for age, Reports fever for > 3 days, feeling ill for > 3 days. Pain: Denies pain. Neuro: Level of Consciousness is awake, alert, obeys commands, Oriented to person, place, time, situation. Respiratory: Reports shortness of breath at rest cough that is non-productive, Airway is patent Respiratory effort is even, Respiratory pattern is tachypnea Breath sounds are diminished bilaterally. the patient has moderate shortness of breath. GI: Patient currently denies nausea, vomiting. Derm: Skin is intact, is healthy with good turgor, Skin is pink, warm \\T\\ dry. Musculoskeletal: Capillary refill < 3 seconds, Range of motion: intact in all extremities. 11:20 Reassessment: received VO for covid workup from Dr. Lee. em 12:58 Reassessment: Patient appears in no apparent distress at this time. No changes from tw2 previously documented assessment. Patient and/or family updated on plan of care and expected duration. Pain level reassessed. "i really think i just needed that oxygen", pt noted to be winded with any movements Patient states feeling better. 13:44 Reassessment: Patient appears in no apparent distress at this time. No changes from tw2 previously documented assessment. Patient and/or family updated on plan of care and expected duration. Pain level reassessed. 16:43 Reassessment: Patient appears in no apparent distress at this time. No changes from tw2 previously documented assessment. Patient and/or family updated on plan of care and expected duration. Pain level reassessed. 19:15 Reassessment: Patient appears in no apparent distress at this time. Patient and/or wh family updated on plan of care and expected duration. Pain level reassessed. Patient is alert, oriented x 3, equal unlabored respirations, skin warm/dry/pink. Vital Signs: 10:51 BP 105 / 70 RA Sitting (auto/reg); Pulse 83; Resp 24; Temp 98.2(O); Pulse Ox 89% on sv R/A; Weight 86.18 kg; Height 6 ft. 0 in. (182.88 cm); 12:30 BP 120 / 76; Pulse 71; Resp 20; Pulse Ox 94% on 2 lpm NC; tw2 13:45 BP 120 / 74; Pulse 69; Resp 22; Pulse Ox 93% on 3 lpm NC; tw2 14:52 BP 128 / 80; Pulse 68; Resp 26; Pulse Ox 94% on 3 lpm NC; tw2 15:44 BP 98 / 63; Pulse 70; Resp 24; Pulse Ox 93% on 5 lpm NC; tw2 16:36 BP 118 / 74; Pulse 72; Resp 26; Pulse Ox 93% on 25% per RT pt on hi-flow oyxgen 25L at tw2 28%; 18:00 BP 124 / 86; Pulse 78; Resp 30; Pulse Ox 75% ; tw2 20:30 BP 124 / 72; Pulse 67; Resp 22; Pulse Ox 95% on NC; wh 10:51 Body Mass Index 25.77 (86.18 kg, 182.88 cm) sv 10:51 Pt placed on O2 \\T\\ 2L per NC. sv 18:00 hi-flow notified, RT paged for adjustment tw2 20:30 40l High Flow 100% wh ED Course: 10:22 Patient arrived in ED. ds1 10:48 Arm band placed on. sv 10:50 Triage completed. sv 10:55 William Lee MD is Attending Physician. aziza 10:57 Tim Villarreal, RN is Primary Nurse. em 10:58 Patient has correct armband on for positive identification. Bed in low position. Call em light in reach. Side rails up X2. Pulse ox on. NIBP on. 11:20 Initial lab(s) drawn, by me, sent to lab. Inserted saline lock: 20 gauge in left em forearm, using aseptic technique. Blood collected. 11:37 EKG done, by ED staff, reviewed by William Lee MD. em1 12:41 CXR XRAY In Process Unspecified. EDMS 12:51 CT Chest For PE Angio In Process Unspecified. EDMS 13:55 Tia Randall MD is Hospitalizing Provider. aziza 20:37 Primary Nurse role handed off by Tim Villarreal, RN mw2 20:47 Flaquita Nguyen is Primary Nurse. wh 20:51 No provider procedures requiring assistance completed. Patient admitted, IV remains in wh place. Administered Medications: 12:14 Drug: NS 0.9% 500 ml Route: IV; Rate: bolus; Site: left forearm; tw2 12:47 Follow up: Response: No adverse reaction; IV Status: Completed infusion; IV Intake: tw2 500ml 12:47 Drug: NS 0.9% 1000 ml Route: IV; Rate: 125 ml/hr; Site: right forearm; tw2 20:58 Follow up: Response: No adverse reaction; IV Status: Infusion continued upon admission wh 14:04 Drug: Decadron - Dexamethasone 4 mg Route: IVP; Site: left forearm; tw2 14:49 Follow up: Response: No adverse reaction em 15:00 Drug: Albuterol HFA Inhaler 4 puffs Route: Inhalation; em 15:56 Follow up: Response: No adverse reaction em 15:55 Not Given (Other Intervention Used; 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 tw2 Outcome: 13:57 Decision to Hospitalize by Provider. aziza 20:51 Admitted to ICU accompanied by [facility], via stretcher, room 5, with oxygen, on monitor, with chart, Report called to Catarina Elder RN 20:51 Condition: stable 20:51 Instructed on the need for admit. 21:06 Patient left the ED. mg2 Signatures: Dispatcher [employer] Susy Corrales, RN PIYUSH William Lee MD MD cha Munoz, Edgar, RN RN Magali Downs ds1 Joaquin Camara em1 Gwendolyn Henry RN RN tw2 Flaquita Nguyen Sona Suárez 2 Chester Mccormick RN RN mg2 Corrections: (The following items were deleted from the chart) 10:52 10:49 Acuity: EMILY 3 sv sv 10:59 10:51 BP 105 / 70 Sitting Auto R Arm Regular; Pulse 83bpm; Resp 24bpm; Pulse Ox 89% RA; sv Temp 98.2F Oral; 86.18 kg; Height 6 ft. 0 in.; BMI: 25.7; sv 15:47 14:52 BP 128 / 80; Pulse 68bpm; Resp 18bpm; Pulse Ox 94% 3 lpm Nasal Cannula; em tw2 15:52 15:44 BP 98 / 63; Pulse 70bpm; Resp 24bpm; Pulse Ox 96% 4 lpm Nasal Cannula; tw2 tw2 16:43 12:58 Reassessment: Patient appears in no apparent distress at this time. No changes tw2 from previously documented assessment. Patient and/or family updated on plan of care and expected duration. Pain level reassessed. Patient is alert, oriented x 3, equal unlabored respirations, skin warm/dry/pink. "i really think i just needed that oxygen" Patient states feeling better. tw2 16:43 13:44 Reassessment: Patient appears in no apparent distress at this time. No changes tw2 from previously documented assessment. Patient and/or family updated on plan of care and expected duration. Pain level reassessed. Patient is alert, oriented x 3, equal unlabored respirations, skin warm/dry/pink. tw2 16:44 12:58 Reassessment: Patient appears in no apparent distress at this time. No changes tw2 from previously documented assessment. Patient and/or family updated on plan of care and expected duration. Pain level reassessed. "i really think i just needed that oxygen" Patient states feeling better. tw2
--- NOTE | 2020-08-24 13:58 | EDPHYS ---
Physician Documentation [facility] Name: Gregg Olea Age: 60 yrs Sex: Male : 1960 Arrival Date: 08/24/2020 Time: 10:22 Bed 8 Private MD: ED Physician William Lee HPI: 08/24 13:50 This 60 yrs old Male presents to ER via Ambulatory with complaints of aziza Breathing Difficulty, Covid +. 13:50 The patient has shortness of breath at rest, with light activity. Onset: The aziza symptoms/episode began/occurred 3 day(s) ago. Duration: The symptoms are continuous, and are steadily getting worse. The patient's shortness of breath has no apparent modifying factors. Associated signs and symptoms: Pertinent positives: non-productive cough. Severity of symptoms: At their worst the symptoms were moderate in the emergency department the symptoms are unchanged. The patient has experienced similar episodes in the past, a few times. Historical: - Allergies: 10:51 Red Dye; sv 10:51 Codeine; sv - Home Meds: 11:05 None [Active]; tw2 - PMHx: 10:51 Anxiety; Hypertension; sv - PSHx: 10:51 acl; rotator cuff; sv - Immunization history:: Adult Immunizations up to date, Flu vaccine is not up to date. - Social history:: Smoking status: Patient denies any tobacco usage or history of. ROS: 13:52 Constitutional: Negative for fever, chills, and weight loss, Eyes: Negative for injury, aziza pain, redness, and discharge, ENT: Negative for injury, pain, and discharge, Neck: Negative for injury, pain, and swelling, Cardiovascular: Negative for chest pain, palpitations, and edema, Abdomen/GI: Negative for abdominal pain, nausea, vomiting, diarrhea, and constipation, Back: Negative for injury and pain, : Negative for injury, bleeding, discharge, and swelling, MS/Extremity: Negative for injury and deformity, Skin: Negative for injury, rash, and discoloration, Neuro: Negative for headache, weakness, numbness, tingling, and seizure, Psych: Negative for depression, anxiety, suicide ideation, homicidal ideation, and hallucinations, Allergy/Immunology: Negative for hives, rash, and allergies, Endocrine: Negative for neck swelling, polydipsia, polyuria, polyphagia, and marked weight changes, Hematologic/Lymphatic: Negative for swollen nodes, abnormal bleeding, and unusual bruising. 13:52 Respiratory: Positive for cough, shortness of breath, at rest. 13:52 MS/extremity: Negative for acute changes, swelling, tenderness. Exam: 13:52 Constitutional: This is a well developed, well nourished patient who is awake, alert, aziza and in no acute distress. Head/Face: Normocephalic, atraumatic. Eyes: Pupils equal round and reactive to light, extra-ocular motions intact. Lids and lashes normal. Conjunctiva and sclera are non-icteric and not injected. Cornea within normal limits. Periorbital areas with no swelling, redness, or edema. ENT: Nares patent. No nasal discharge, no septal abnormalities noted. Tympanic membranes are normal and external auditory canals are clear. Oropharynx with no redness, swelling, or masses, exudates, or evidence of obstruction, uvula midline. Mucous membranes moist. Neck: Trachea midline, no thyromegaly or masses palpated, and no cervical lymphadenopathy. Supple, full range of motion without nuchal rigidity, or vertebral point tenderness. No Meningismus. Chest/axilla: Normal chest wall appearance and motion. Nontender with no deformity. No lesions are appreciated. Cardiovascular: Regular rate and rhythm with a normal S1 and S2. No gallops, murmurs, or rubs. Normal PMI, no JVD. No pulse deficits. Abdomen/GI: Soft, non-tender, with normal bowel sounds. No distension or tympany. No guarding or rebound. No evidence of tenderness throughout. Back: No spinal tenderness. No costovertebral tenderness. Full range of motion. Male : Normal genitalia with no discharge or lesions. Skin: Warm, dry with normal turgor. Normal color with no rashes, no lesions, and no evidence of cellulitis. MS/ Extremity: Pulses equal, no cyanosis. Neurovascular intact. Full, normal range of motion. Neuro: Awake and alert, GCS 15, oriented to person, place, time, and situation. Cranial nerves II-XII grossly intact. Motor strength 5/5 in all extremities. Sensory grossly intact. Cerebellar exam normal. Normal gait. Psych: Awake, alert, with orientation to person, place and time. Behavior, mood, and affect are within normal limits. 13:52 Respiratory: mild respiratory distress is noted, Respirations: normal, Breath sounds: decreased breath sounds, rhonchi, that are mild, are scattered, Respiratory rate: 93 % on 2 liters 13:57 ECG was reviewed by the Attending Physician. [facility] Vital Signs: 10:51 BP 105 / 70 RA Sitting (auto/reg); Pulse 83; Resp 24; Temp 98.2(O); Pulse Ox 89% on sv R/A; Weight 86.18 kg; Height 6 ft. 0 in. (182.88 cm); 12:30 BP 120 / 76; Pulse 71; Resp 20; Pulse Ox 94% on 2 lpm NC; tw2 13:45 BP 120 / 74; Pulse 69; Resp 22; Pulse Ox 93% on 3 lpm NC; tw2 14:52 BP 128 / 80; Pulse 68; Resp 26; Pulse Ox 94% on 3 lpm NC; tw2 15:44 BP 98 / 63; Pulse 70; Resp 24; Pulse Ox 93% on 5 lpm NC; tw2 16:36 BP 118 / 74; Pulse 72; Resp 26; Pulse Ox 93% on 25% per RT pt on hi-flow oyxgen 25L at tw2 28%; 18:00 BP 124 / 86; Pulse 78; Resp 30; Pulse Ox 75% ; tw2 20:30 BP 124 / 72; Pulse 67; Resp 22; Pulse Ox 95% on NC; wh 10:51 Body Mass Index 25.77 (86.18 kg, 182.88 cm) sv 10:51 Pt placed on O2 \T\ 2L per NC. sv 18:00 hi-flow notified, RT paged for adjustment tw2 20:30 40l High Flow 100% wh MDM: 10:55 Patient medically screened. [facility] 13:54 Differential diagnosis: Anxiety Reaction asthma, Bronchitis CHF exacerbation, aziza pneumonia, pulmonary edema, Pulmonary Embolism reactive airway disease, Sepsis. Antibiotic administration: Zithromax is given. The patient's Wells Deep Vein Thrombosis Score was calculated as follows: Total Score: 0-2 Pts- Low Risk. The patient's pulmonary embolism risk score was calculated as follows: Total Score: 0-2 points. This patient was found to be at low risk for a pulmonary embolism by using the Well's assessment criteria. Immunization status: Influenza vaccine: Data reviewed: vital signs, nurses notes, lab test result(s), EKG, radiologic studies, plain films. Data interpreted: ebay reseller: rate is 69 beats/min, rhythm is regular, Pulse oximetry: on room air is 89 %. Test interpretation: by ED physician or midlevel provider: ECG, plain radiologic studies. 08/24 11:21 Order name: Blood Culture Adult (2) em 08/24 11:21 Order name: BMP; Complete Time: 12:24 em 08/24 11:21 Order name: C-Reactive Protein; Complete Time: 12:24 em 08/24 11:21 Order name: CBC with Diff; Complete Time: 13:32 em 08/24 11:21 Order name: D-Dimer; Complete Time: 13:32 em 08/24 11:21 Order name: Ferritin; Complete Time: 12:24 em 08/24 11:21 Order name: Flu em 08/24 11:21 Order name: Lactate; Complete Time: 12:24 em 08/24 11:21 Order name: LFT's; Complete Time: 12:24 em 08/24 11:21 Order name: Lipase; Complete Time: 12:24 em 08/24 11:21 Order name: Procalcitonin; Complete Time: 13:32 em 08/24 11:21 Order name: PT-INR; Complete Time: 13:32 em 08/24 11:21 Order name: Ptt, Activated; Complete Time: 13:32 em 08/24 11:21 Order name: Troponin (emerg Dept Use Only); Complete Time: 12:24 em 08/24 11:21 Order name: Urine Microscopic Only em 08/24 12:54 Order name: CBC Smear Scan; Complete Time: 13:32 EDMS 08/24 14:44 Order name: C-Reactive Protein EDMS 08/24 14:44 Order name: C-Reactive Protein EDMS 08/24 14:44 Order name: CBC with Automated Diff EDMS 08/24 14:44 Order name: CBC with Automated Diff EDMS 08/24 14:44 Order name: Comprehensive Metabolic Panel EDMS 08/24 14:44 Order name: Comprehensive Metabolic Panel EDMS 08/24 14:44 Order name: D-Dimer EDMS 08/24 14:44 Order name: D-Dimer EDMS 08/24 14:44 Order name: Ferritin EDMS 08/24 14:44 Order name: Ferritin EDMS 08/24 14:44 Order name: Lipid Profile EDWI 08/24 14:44 Order name: Lipid Profile EDWI 08/24 14:44 Order name: Protime (+INR) EDWI 08/24 14:44 Order name: Protime (+INR) EDWI 08/24 11:21 Order name: CXR XRAY; Complete Time: 13:32 em 08/24 11:21 Order name: EKG; Complete Time: 11:22 em 08/24 11:21 Order name: Cardiac monitoring; Complete Time: 11:30 em 08/24 11:21 Order name: Document PUI#; Complete Time: 11:30 em 08/24 11:21 Order name: Droplet/Contact Precautions; Complete Time: 11:30 em 08/24 11:21 Order name: EKG - Nurse/Tech; Complete Time: 11:37 em 08/24 11:21 Order name: IV Start; Complete Time: 11:30 em 08/24 11:21 Order name: Labs collected and sent; Complete Time: 11:30 em 08/24 11:21 Order name: Notify Health Dept [phone]/ ; Complete Time: 11:30 em 08/24 11:21 Order name: O2 Per Protocol; Complete Time: 11:30 em 08/24 11:21 Order name: O2 Sat Monitoring; Complete Time: 11:30 em 08/24 11:26 Order name: CT Chest For PE Angio; Complete Time: 13:35 aziza 08/24 14:44 Order name: CONS Pharmacy Consult EDWI 08/24 14:44 Order name: CONS Physician Consult EDWI 08/24 14:44 Order name: Heart Healthy EDWI 08/24 14:44 Order name: PTT, Activated Partial Thromb EDWI 08/24 14:44 Order name: PTT, Activated Partial Thromb EDWI EC:57 Rate is 75 beats/min. Rhythm is regular. QRS [place] is Normal. NE interval is normal. QRS aziza interval is normal. QT interval is normal. No Q waves. T waves are Normal. No ST changes noted. Clinical impression: Normal ECG and No evidence of ischemia. Interpreted by me. Reviewed by me. Administered Medications: 12:14 Drug: NS 0.9% 500 ml Route: IV; Rate: bolus; Site: left forearm; tw2 12:47 Follow up: Response: No adverse reaction; IV Status: Completed infusion; IV Intake: tw2 500ml 12:47 Drug: NS 0.9% 1000 ml Route: IV; Rate: 125 ml/hr; Site: right forearm; tw2 20:58 Follow up: Response: No adverse reaction; IV Status: Infusion continued upon admission wh 14:04 Drug: Decadron - Dexamethasone 4 mg Route: IVP; Site: left forearm; tw2 14:49 Follow up: Response: No adverse reaction em 15:00 Drug: Albuterol HFA Inhaler 4 puffs Route: Inhalation; em 15:56 Follow up: Response: No adverse reaction em 15:55 Not Given (Other Intervention Used; 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 Preliminary diagnosis are Dyspnea, Pneumonia, unspecified organism - covid 19 bilateral pneumonia, Hypoxemia. - Bed requested for Intensive Care Unit. - Status is Inpatient Admission. mg2 - Condition is Fair. - Problem is new. - Symptoms have improved. Signatures: Dispatcher [employer] EDSusy Talley RN PIYUSH William Lee MD MD cha Munoz, Edgar, RN RN Elvira Orellana RN RN Gwendolyn Henry RN RN [address]Omayra[address] [facility] Chester Mccormick RN RN [facility] Flaquita Nguyen Corrections: (The following items were deleted from the chart) 15:32 13:57 Hospitalization Ordered by Tia Randall MD for Inpatient Admission. Preliminary ss diagnosis is Dyspnea; Pneumonia, unspecified organism - covid 19 bilateral pneumonia; Hypoxemia. Bed requested for Telemetry/MedSurg (Inpatient). Status is Inpatient Admission. Condition is Fair. Problem is new. Symptoms have improved. [facility] 20:15 15:32 08/24/2020 13:57 Hospitalization Ordered by Tia Randall MD for Inpatient mw2 Admission. Preliminary diagnosis is Dyspnea; Pneumonia, unspecified organism - covid 19 bilateral pneumonia; Hypoxemia. Bed requested for [facility] ER HOLD. Status is Inpatient Admission. Condition is Fair. Problem is new. Symptoms have improved. ss 21:06 20:15 08/24/2020 13:57 Hospitalization Ordered by Tia Randall MD for Inpatient mg2 Admission. Preliminary diagnosis is Dyspnea; Pneumonia, unspecified organism - covid 19 bilateral pneumonia; Hypoxemia. Bed requested for Intensive Care Unit. Status is Inpatient Admission. Condition is Fair. Problem is new. Symptoms have improved. mw2
[2020-08-24] MEDS ORDERED: dexAMETHasone 4 MG/ML VIAL ONE (14:12)
[2020-08-24] MEDS ORDERED: ACETAMINOPHEN 500 MG TAB PO PRN (14:35)
[2020-08-24] MEDS ORDERED: ONDANSETRON 4 MG/2 ML VIAL IV PRN (14:35)
[2020-08-24] MEDS ORDERED: D50W 25 GM/50 ML SYRINGE IV PRN (14:35)
[2020-08-24] MEDS ORDERED: MORPHINE 2 MG/ML SYR IV PRN (14:35)
[2020-08-24] MEDS ORDERED: GLUCAGON 1 MG/VIAL IM PRN (14:35)
[2020-08-24] MEDS ORDERED: NA CHLORIDE 0.9% 1,000 ML IV SCH (15:00)
[2020-08-24] MEDS ORDERED: FAMOTIDINE 20 MG/2 ML VIAL IV ONE (15:10)
[2020-08-24] MEDS ORDERED: ALBUTEROL INHALER 60 PUFF/8 GM IH ONE (15:11)
[2020-08-24] MEDS: INSULIN -REGULAR HUMAN 50 UNIT/0.5 ML ML SQ SCH ×2 (16:30→21:00)
[2020-08-24] MEDS ORDERED: ALBUTEROL 2.5 MG/3 ML NEB SOL ONE (19:49)
[2020-08-24] MEDS ORDERED: IPRATROPIUM BROM 0.5MG/2.5ML ONE (19:49)
[2020-08-24] MEDS ORDERED: ALBUTEROL 2.5 MG/3 ML NEB SOL NEB SCH (20:00)
[2020-08-24] MEDS ORDERED: IPRATROPIUM BROM 0.5MG/2.5ML NEB SCH (20:00)
[2020-08-24] MEDS ORDERED: METHYLPREDNISOLONE 40 MG INJ IV SCH (21:00)
[2020-08-24] MEDS: APIXABAN 5 MG TABLET PO SCH (22:12)
[2020-08-24] MEDS: FAMOTIDINE 20 MG/2 ML VIAL IV SCH (22:12)
[2020-08-25 05:11] LABS: Absolute Lymphocytes (CBC) 0.3 K/uL (0.7-4.9); Basophils % 0.4 % (0-1.3); Hematocrit 40.7 % (39.6-49.0); Lymphocytes % 3.3 % (15.3-44.8); MPV 8.8 fL (7.6-11.3); RBC Red Blood Cell Count 4.58 M/uL (4.33-5.43)
[2020-08-25 05:15] LABS: Protime INR 1.29
[2020-08-25 06:04] LABS: Albumin 2.6 g/dL (3.4-5.0); Bilirubin Total 0.5 mg/dL (0.2-1.0); Ferritin 2086.6 ng/mL (26-388); Potassium 4.8 mmol/L (3.5-5.1); Protein, Total 7.2 g/dL (6.4-8.2)
--- NOTE | 2020-08-25 06:09 | EKG ---
Test Date: 2020-08-24 Test Time: 11:33:54 Lacquer Polisher: GEO MEASUREMENT RESULTS: Intervals: Rate: 75 NV: 138 QRSD: 112 QT: 392 QTc: 437 [place]: P: 43 NV: 138 QRS: 26 T: 41 INTERPRETIVE STATEMENTS: Normal sinus rhythm Incomplete right bundle branch block Borderline ECG Compared to ECG 03/08/2019 20:49:33 Incomplete right bundle-branch block now present Intraventricular conduction delay no longer present Electronically Signed On 08-25-20 06:08:03 EMG TECHNICIAN by Barron Conti
[2020-08-25] MEDS: INSULIN -REGULAR HUMAN 50 UNIT/0.5 ML ML SQ SCH ×4 (07:30→20:57)
[2020-08-25] MEDS: FAMOTIDINE 20 MG/2 ML VIAL IV SCH ×2 (07:53→20:57)
[2020-08-25] MEDS: FUROSEMIDE 20 MG/ 2ML VIAL IV SCH (07:53)
[2020-08-25] MEDS: METHYLPREDNISOLONE 125 MG INJ IV SCH ×2 (07:53→20:59)
[2020-08-25] MEDS: APIXABAN 5 MG TABLET PO SCH ×2 (07:54→20:57)
--- NOTE | 2020-08-25 12:29 | P.CNS ---
Date of Consult: 08/25/20 Reason for Consult: Respiratory failure from tobar virus Chief Complaint: Shortness of breath History of Present Illness: Patient is 60 years of age became sick the day before Thanksgiving the becoming progressive shortness of breath diagnosed with tobar virus infection admitted with respiratory failure he is currently doing better however requiring BiPAP Allergies codeine Allergy (Severe, Verified 08/24/20 22:05) Hives red dye Allergy (Verified 08/24/20 21:45) Hives Home Medications: NK [No Home Meds] 08/24/20 - Past Medical/Surgical History Diabetic: No -: Anxiety -: Htn -: He Rotator cuff sx -: ACL repair L Knee -: He Carpal tunnel sx - Family History Mother Medical History: Cancer Notes: Breast Cancer Father Medical History: Hypertension, Cancer, Other (see notes) Notes: Prostate Cancer, only has one kidney - Social History Smoking Status: Unknown if ever smoked Alcohol use: Yes CD- Drugs: No Caffeine use: Yes Place of Residence: Home Review of Systems General: Weakness Respiratory: Cough, Shortness of Breath Physical Examination Temp Pulse Resp BP Pulse Ox 97.7 F 79 22 H 147/90 H 91 08/25/20 08:00 08/25/20 08:00 08/25/20 04:00 08/25/20 08:00 08/25/20 08:00 General: Alert, In no apparent distress, Oriented x3 Respiratory: Crackles/rales, Expiratory wheezes Cardiovascular: No edema, Normal S1 S2 Laboratory Data (last 24 hrs) 08/24/20 11:20: WBC 7.7, Hgb 14.8, Hct 42.5, Plt Count 203 - Problems (1) Acute respiratory failure due to severe acute respiratory syndrome coronavirus 2 (SARS-CoV-2) infection Current Visit: Yes Status: Acute Plan: Patient is 60 years of age diagnosed with tobar virus infection admitted respiratory failure is gradually improving on 45% FiO2 sats satisfactory CT chest consistent with tobar virus infection labs reviewed continue with steroid low-dose diuretic agree with full anticoagulation
[2020-08-25] MEDS: THIAMINE HCL 100 MG TABLET PO SCH (12:52)
[2020-08-25] MEDS: MELATONIN 3 MG TABLET PO SCH (20:57)
[2020-08-25] MEDS: ATORVASTATIN 40 MG TAB PO SCH (20:57)
[2020-08-26 06:37] LABS: Ferritin 2591.2 ng/mL (26-388)
[2020-08-26] MEDS: INSULIN -REGULAR HUMAN 50 UNIT/0.5 ML ML SQ SCH ×4 (07:30→20:49)
--- NOTE | 2020-08-26 09:47 | P.HP ---
Certification for Inpatient Patient admitted to: Inpatient With expected LOS: >2 Midnights Patient will require the following post-hospital care: None Practitioner: I am a practitioner with admitting privileges, knowledge of patient current condition, hospital course, and medical plan of care. Services: Services provided to patient in accordance with Admission requirements found in Title 42 Section 412.3 of the Code of Federal Regulations Patient History Date of Service: 08/24/20 Reason for admission: Shortness of breath History of Present Illness: Patient is a 60-year-old gentleman who came to the hospital with difficulty breathing. Patient was diagnosed with COVID-19 pneumonia on . He is gradually being getting more short of breath so he came into the hospital for further evaluation. In the emergency room, patient was found have diffuse inflammation in infiltrates on his chest x-ray. Patient was severely hypoxic and was placed on BiPAP. Patient was admitted to the COVID-19 ICU for further treatment. We did Consult Pulmonary and started patient on IV steroids. She has not gotten plasma or remdesivir. Will discuss this with Pulmonary to see if we need to start any additional medications besides the steroids and the nebulizer treatment. Patient does have comorbidities including hypertension but denies any other medical issues. At this time, will monitor patient closely on BiPAP and hopefully we can wean down to high flow in the morning. Allergies codeine Allergy (Severe, Verified 08/24/20 22:05) Hives red dye Allergy (Verified 08/24/20 21:45) Hives Home Medications: NK [No Home Meds] 08/24/20 - Past Medical/Surgical History Has patient received pneumonia vaccine in the past: No Diabetic: No -: Anxiety -: Htn -: He Rotator cuff sx -: ACL repair L Knee -: He Carpal tunnel sx - Family History Mother Medical History: Cancer Notes: Breast Cancer Father Medical History: Hypertension, Cancer, Other (see notes) Notes: Prostate Cancer, only has one kidney - Social History Smoking Status: Former smoker Alcohol use: Yes CD- Drugs: No Caffeine use: Yes Place of Residence: Home Review of Systems 10-point ROS is otherwise unremarkable Physical Examination - Vital Signs Temperature: 97.6 F Blood Pressure: 139/83 Pulse: 68 Respirations: 24 Pulse Ox (%): 99 - Physical Exam General: Alert, In no apparent distress, Oriented x3 HEENT: Atraumatic, PERRLA, Mucous membr. moist/pink, EOMI, Sclerae nonicteric Neck: Supple, 2+ carotid pulse no bruit, No LAD, Without JVD or thyroid abnormality Respiratory: Diminished, Rhonchi/gurgles Cardiovascular: Regular rate/rhythm, Normal S1 S2, No murmurs Gastrointestinal: Normal bowel sounds, Soft and benign, Non-distended, No tenderness Musculoskeletal: No clubbing, No swelling, No tenderness Integumentary: No rashes Neurological: Normal gait, Normal speech, Normal strength at 5/5 x4 extr, Normal tone, Sensation intact, Cranial nerves 3-12 intact, Normal affect Lymphatics: No axilla or inguinal lymphadenopathy Assessment & Plan - Problems (Diagnosis) (1) Pneumonia due to COVID-19 virus Current Visit: Yes Status: Acute (2) Hypoxemia Current Visit: Yes Status: Acute (3) Acute respiratory failure due to severe acute respiratory syndrome coronavirus 2 (SARS-CoV-2) infection Current Visit: Yes Status: Acute - Plan 1. Continue with IV antibiotics 2. COVID-19 pneumonia 3. Repeat chest x-ray is symptoms are progressively worsening 4. O2 per protocol 5. Pulmonary consultation 6. Continue with albuterol inhaler therapy; IV dexamethasone; zinc and vitamin-C 7. O2 per protocol 8. Monitor LFTs 9. Repeat labs including D-dimer, ferritin, and CRP and LFTs 10. GI and DVT prophylaxis Discharge Plan: Home Plan to discharge in: Greater than 2 days - Advance Directives Does patient have a Living Will: Yes Does patient have a Durable POA for Healthcare: Yes - Code Status/Comfort Care Code Status Assessed: Yes Code Status: Full Code Critical Care: Yes Time Spent Managing PTS Care (In Minutes): 50
--- NOTE | 2020-08-26 09:50 | P.PN ---
Subjective Date of Service: 08/25/20 Subjective: Improving Patient is requiring less oxygen. Continue to wean off of the FiO2. Review of Systems 10-point ROS is otherwise unremarkable Physical Examination - Vital Signs Temperature: 97.6 F Blood Pressure: 139/83 Pulse: 68 Respirations: 24 Pulse Ox (%): 99 - Physical Exam General: Alert, In no apparent distress, Oriented x3 Respiratory: Diminished, Rhonchi/gurgles Cardiovascular: Regular rate/rhythm, Normal S1 S2, No murmurs Gastrointestinal: Normal bowel sounds, Soft and benign, Non-distended, No tenderness Musculoskeletal: No clubbing, No swelling, No tenderness Neurological: Sensation intact, Cranial nerves 3-12 intact - Studies Medications List Reviewed: Yes Assessment & Plan - Problems (Diagnosis) (1) Pneumonia due to COVID-19 virus Current Visit: Yes Status: Acute (2) Hypoxemia Current Visit: Yes Status: Acute (3) Acute respiratory failure due to severe acute respiratory syndrome coronavirus 2 (SARS-CoV-2) infection Current Visit: Yes Status: Acute - Plan Continue with plan of care as mentioned below 1. Continue with IV antibiotics 2. May repeat chest x-ray over the next 48 hr 3. Out of bed and ambulate if oxygenation continues to improve and we can wean off of BiPAP 4. O2 per protocol 5. Pulmonary consultation 6. Continue with albuterol inhaler therapy; IV dexamethasone; zinc and vitamin-C 7. O2 per protocol 8. Monitor LFTs 9. Repeat labs including D-dimer, ferritin, and CRP and LFTs 10. GI and DVT prophylaxis Discharge Plan: Home Plan to discharge in: Greater than 2 days - Advance Directives Does patient have a Living Will: Yes Does patient have a Durable POA for Healthcare: Yes - Code Status/Comfort Care Code Status: Full Code Critical Care: Yes Time Spent Managing PTS Care (In Minutes): 35
[2020-08-26] MEDS: APIXABAN 5 MG TABLET PO SCH ×2 (10:14→20:38)
[2020-08-26] MEDS: FAMOTIDINE 20 MG/2 ML VIAL IV SCH ×2 (10:14→20:39)
[2020-08-26] MEDS: METHYLPREDNISOLONE 125 MG INJ IV SCH ×2 (10:14→20:39)
[2020-08-26] MEDS: FUROSEMIDE 20 MG/ 2ML VIAL IV SCH (10:15)
[2020-08-26] MEDS: THIAMINE HCL 100 MG TABLET PO SCH (14:28)
[2020-08-26] MEDS: VITAMIN D 1000 UNIT TAB PO SCH (14:28)
[2020-08-26] MEDS: MELATONIN 3 MG TABLET PO SCH (20:38)
[2020-08-26] MEDS: ATORVASTATIN 40 MG TAB PO SCH (20:38)
[2020-08-27] MEDS: INSULIN -REGULAR HUMAN 50 UNIT/0.5 ML ML SQ SCH ×4 (07:30→20:48)
[2020-08-27 07:49] LABS: C-Reactive Protein 88.1 mg/L (<3.00); Ferritin 3005.5 ng/mL (26-388)
[2020-08-27] MEDS: VITAMIN D 1000 UNIT TAB PO SCH (08:36)
[2020-08-27] MEDS: METHYLPREDNISOLONE 125 MG INJ IV SCH ×2 (08:36→20:28)
[2020-08-27] MEDS: APIXABAN 5 MG TABLET PO SCH ×2 (08:36→20:28)
[2020-08-27] MEDS: FUROSEMIDE 20 MG/ 2ML VIAL IV SCH (08:36)
[2020-08-27] MEDS: THIAMINE HCL 100 MG TABLET PO SCH (08:36)
[2020-08-27] MEDS: FAMOTIDINE 20 MG/2 ML VIAL IV SCH ×2 (08:36→20:28)
--- NOTE | 2020-08-27 10:01 | P.PN ---
Subjective Date of Service: 08/26/20 Patient clinically doing better. Patient states he feels much better but his oxygen requirements are still quite significant. No significant pleuritic chest pain. Encouraging patient to get out of bed into a chair throughout the day. Also encouraging patient to lay down in the prone position. Review of Systems 10-point ROS is otherwise unremarkable Physical Examination - Vital Signs Temperature: 97.1 F Blood Pressure: 133/86 Pulse: 73 Respirations: 22 Pulse Ox (%): 87 - Physical Exam General: Alert, In no apparent distress, Oriented x3 Neurological: Normal strength at 5/5 x4 extr, Sensation intact, Cranial nerves 3-12 intact Other Physical/Emotional Findings: Patient strains is improving. Patient's cardiac status appears to be stable. Tachypneic - Studies Medications List Reviewed: Yes Assessment & Plan - Problems (Diagnosis) (1) Pneumonia due to COVID-19 virus Current Visit: Yes Status: Acute (2) Hypoxemia Current Visit: Yes Status: Acute (3) Acute respiratory failure due to severe acute respiratory syndrome coronavirus 2 (SARS-CoV-2) infection Current Visit: Yes Status: Acute - Plan Continue with plan of care as mentioned below 1. Continue with IV steroids 2. Will consider repeating chest x-ray 3. Alternating from high-flow to BiPAP 4. O2 per protocol 5. Pulmonary consultation appreciated 6. Continue with albuterol inhaler therapy as needed 7. Repeat labs including D-dimer, ferritin, and CRP and LFTs Discharge Plan: Home Plan to discharge in: Greater than 2 days - Advance Directives Does patient have a Living Will: Yes Does patient have a Durable POA for Healthcare: Yes - Code Status/Comfort Care Code Status: Full Code Critical Care: No Time Spent Managing PTS Care (In Minutes): 35
--- NOTE | 2020-08-27 12:25 | P.PN ---
Subjective Date of Service: 08/27/20 Chief Complaint: Respiratory failure from tobar virus Subjective: Improving (Patient is feeling better he still hypoxic requiring very high concentrations of oxygen) Review of Systems General: Weakness Respiratory: Shortness of Breath Physical Examination - Vital Signs Temperature: 97.1 F Blood Pressure: 133/86 Pulse: 73 Respirations: 22 Pulse Ox (%): 87 - Physical Exam Other Physical/Emotional Findings: Patient strains is improving. Patient's cardiac status appears to be stable. Tachypneic - Studies Medications List Reviewed: Yes Assessment & Plan - Problems (Diagnosis) (1) Acute respiratory failure due to severe acute respiratory syndrome coronavirus 2 (SARS-CoV-2) infection Current Visit: Yes Status: Acute Plan: Patient has respiratory failure from tobar virus of ordered a chest x-ray CRP is declining advice patient to use BiPAP instead of high-flow continue to monitor maintaining slight negative fluid balance I have added spironolactone Diflucan for fungal superinfection prophylaxis
[2020-08-27] MEDS: SPIRONOLACTONE 25 MG TABLET PO SCH (14:33)
[2020-08-27] MEDS: MELATONIN 3 MG TABLET PO SCH (20:28)
[2020-08-27] MEDS: ATORVASTATIN 40 MG TAB PO SCH (20:28)
[2020-08-28 04:50] LABS: Absolute Lymphocytes (CBC) 0.3 K/uL (0.7-4.9); Basophils % 0.1 % (0-1.3); Hematocrit 40.3 % (39.6-49.0); Lymphocytes % 2.3 % (15.3-44.8); MPV 8.7 fL (7.6-11.3); RBC Red Blood Cell Count 4.45 M/uL (4.33-5.43)
[2020-08-28 05:02] LABS: C-Reactive Protein 49.8 mg/L (<3.00); Ferritin 1933.6 ng/mL (26-388); Phosphorus 4.8 mg/dL (2.5-4.9); Potassium 4.4 mmol/L (3.5-5.1)
[2020-08-28] MEDS: INSULIN -REGULAR HUMAN 50 UNIT/0.5 ML ML SQ SCH ×4 (07:30→21:00)
--- NOTE | 2020-08-28 08:16 | P.PN ---
Subjective Date of Service: 08/27/20 Patient still feeling okay but his oxygen requirements have slightly increased. I will go ahead repeated chest x-ray in the morning and continue with IV steroids. Inflammatory markers have decreased as well. Review of Systems 10-point ROS is otherwise unremarkable Physical Examination - Vital Signs Temperature: 97.0 F Blood Pressure: 160/88 Pulse: 53 Respirations: 25 Pulse Ox (%): 93 - Physical Exam General: Alert, In no apparent distress, Oriented x3, Other (BiPAP mask on in place) Respiratory: Other (breathing comfortably and does not appear to be in distress while resting although he was requiring a large amount of oxygen) Cardiovascular: Other (regular rhythm noted) Gastrointestinal: Normal bowel sounds, Soft and benign, Non-distended Musculoskeletal: No clubbing, No swelling Other Physical/Emotional Findings: Patient strains is improving. Patient's cardiac status appears to be stable. Tachypneic - Studies Medications List Reviewed: Yes Assessment & Plan - Problems (Diagnosis) (1) Pneumonia due to COVID-19 virus Current Visit: Yes Status: Acute (2) Hypoxemia Current Visit: Yes Status: Acute (3) Acute respiratory failure due to severe acute respiratory syndrome coronavirus 2 (SARS-CoV-2) infection Current Visit: Yes Status: Acute - Plan Continue with plan of care as mentioned below 1. Continue with IV steroids 2. Repeat chest x-ray in a.m. as O2 requirements have increased 3. Alternating from high-flow to BiPAP 4. Pulmonary consultation appreciated 5. Continue with albuterol inhaler therapy as needed 6. Repeat labs including D-dimer, ferritin, and CRP and LFTs - Advance Directives Does patient have a Living Will: Yes Does patient have a Durable POA for Healthcare: Yes - Code Status/Comfort Care Code Status: Full Code
--- NOTE | 2020-08-28 08:50 | RAD REPORT ---
EXAM DESCRIPTION: [facility] Single View08/28/2020 7:04 am CLINICAL HISTORY: Cough COMPARISON: August 24, 2020 FINDINGS: Bilateral pulmonary opacities have partially resolved The heart is normal size IMPRESSION: Partial resolution in the bilateral pneumonia
[2020-08-28] MEDS: FUROSEMIDE 20 MG/ 2ML VIAL IV SCH ×2 (09:00→09:52)
[2020-08-28] MEDS: THIAMINE HCL 100 MG TABLET PO SCH (09:53)
[2020-08-28] MEDS: FLUCONAZOLE 100 MG TAB PO SCH (09:53)
[2020-08-28] MEDS: APIXABAN 5 MG TABLET PO SCH ×2 (09:53→21:00)
[2020-08-28] MEDS: SPIRONOLACTONE 25 MG TABLET PO SCH (09:53)
[2020-08-28] MEDS: METHYLPREDNISOLONE 125 MG INJ IV SCH ×2 (09:54→21:00)
[2020-08-28] MEDS: VITAMIN D 1000 UNIT TAB PO SCH (10:08)
--- NOTE | 2020-08-28 11:24 | P.PN ---
Subjective Date of Service: 08/28/20 Chief Complaint: Respiratory failure from tobar virus No changes still requiring high concentrations of oxygen he feels better 100% right now chest x-ray shows minimal interstitial changes Review of Systems General: Weakness, Malaise Respiratory: Cough, Shortness of Breath Physical Examination - Vital Signs Temperature: 97.0 F Blood Pressure: 160/88 Pulse: 68 Respirations: 25 Pulse Ox (%): 93 - Physical Exam Other Physical/Emotional Findings: Patient strains is improving. Patient's cardiac status appears to be stable. Tachypneic - Studies Medications List Reviewed: Yes Assessment & Plan - Problems (Diagnosis) (1) Acute respiratory failure due to severe acute respiratory syndrome coronavirus 2 (SARS-CoV-2) infection Current Visit: Yes Status: Acute Plan: Patient admitted with respiratory failure due to: CRP is declining patient is still requiring high concentrations of oxygen will check is ABGs low-dose Januvia the reduce hyper glycemia Plan to discharge in: Greater than 2 days
[2020-08-28] MEDS: FAMOTIDINE 20 MG/2 ML VIAL IV SCH ×2 (12:10→21:00)
[2020-08-28 13:31] LABS: Arterial Blood Carboxyhemoglob 0.9 % (0-1.5); Blood Gas Oxyhemoglobin 92.3 % (94-97); Blood O2 Saturation 94.1 % (92-98.5)
[2020-08-28] MEDS: SITAGLIPTIN PHOS 100 MG TAB PO SCH (16:48)
--- NOTE | 2020-08-28 20:21 | P.PN ---
Subjective Date of Service: 08/28/20 Patient is continuing to gradually improve. Patient denies any new complaints. His oxygen requirements have increased but his chest x-ray from today does not look any worse from the day before and may actually show some improvement. His inflammatory markers are also showing improvement. I am hoping his oxygen requirements also started to decline. We will monitor him closely through the next few days and hopefully start stones more improvement during this time period. Encouraging him to stay prone as much as he can while he is laying down. Also encouraged him to continue to get out of bed and to move around and to be very patient with his disease process as it is a very slow recovery. Review of Systems 10-point ROS is otherwise unremarkable Physical Examination - Vital Signs Temperature: 97.5 F Blood Pressure: 132/87 Pulse: 71 Respirations: 28 Pulse Ox (%): 96 - Physical Exam General: Alert, In no apparent distress, Oriented x3 Respiratory: Other (Patient's respirations are stable.) Cardiovascular: Regular rate/rhythm, Normal S1 S2 Gastrointestinal: No tenderness, No rebound, No guarding Musculoskeletal: No tenderness Integumentary: No rashes Neurological: Sensation intact, Cranial nerves 3-12 intact Other Physical/Emotional Findings: Patient strains is improving. Patient's cardiac status appears to be stable. Tachypneic - Studies Medications List Reviewed: Yes Assessment & Plan - Problems (Diagnosis) (1) Pneumonia due to COVID-19 virus Current Visit: Yes Status: Acute (2) Hypoxemia Current Visit: Yes Status: Acute (3) Acute respiratory failure due to severe acute respiratory syndrome coronavirus 2 (SARS-CoV-2) infection Current Visit: Yes Status: Acute - Plan Continue with plan of care as mentioned below 1. Continue with IV steroids 2. Chest x-ray with no significant changes, maybe some mild improvement 3. Alternating from high-flow to BiPAP; will try to continue to wean down his FiO2. 4. Continue with albuterol inhaler therapy as needed 5. Monitor patient's inflammatory markers Discharge Plan: Home Plan to discharge in: Greater than 2 days - Advance Directives Does patient have a Living Will: Yes Does patient have a Durable POA for Healthcare: Yes - Code Status/Comfort Care Code Status: Full Code Critical Care: No Time Spent Managing PTS Care (In Minutes): 35
[2020-08-28] MEDS: MELATONIN 3 MG TABLET PO SCH (21:01)
[2020-08-28] MEDS: ATORVASTATIN 40 MG TAB PO SCH (21:01)
[2020-08-29] MEDS: INSULIN -REGULAR HUMAN 50 UNIT/0.5 ML ML SQ SCH ×4 (07:12→21:00)
[2020-08-29] MEDS: SITAGLIPTIN PHOS 100 MG TAB PO SCH (07:45)
[2020-08-29] MEDS: FLUCONAZOLE 100 MG TAB PO SCH (07:46)
[2020-08-29] MEDS: APIXABAN 5 MG TABLET PO SCH ×2 (07:46→20:05)
[2020-08-29] MEDS: SPIRONOLACTONE 25 MG TABLET PO SCH (07:47)
[2020-08-29] MEDS: VITAMIN D 1000 UNIT TAB PO SCH (07:47)
[2020-08-29] MEDS: THIAMINE HCL 100 MG TABLET PO SCH (07:47)
[2020-08-29] MEDS: FUROSEMIDE 20 MG/ 2ML VIAL IV SCH (07:48)
[2020-08-29] MEDS: METHYLPREDNISOLONE 125 MG INJ IV SCH ×2 (07:48→20:05)
[2020-08-29] MEDS: FAMOTIDINE 20 MG/2 ML VIAL IV SCH ×2 (07:48→20:05)
--- NOTE | 2020-08-29 08:36 | P.PN ---
Subjective Date of Service: 08/29/20 Patient resting comfortably. Wakes up and he has no new complaints. Patient is continuing to gradually improve. His oxygen requirements have been relatively stable. Chest x-ray from 24 hr ago does not really show any worsening of the infiltrates. His inflammatory markers are also showing improvement except for his D-dimer which was up substantially. Labs will be repeated tomorrow. I am hoping his oxygen requirements will also start to improve. Nurses state that his BiPAP was taken off last night for about 4 min and he dropped his oxygen saturations to about 75%. The was earlier in her shift. When they removed it this morning for some water he maintain his oxygen saturations into the 80 percentile. He does not appear to be in any distress. We will monitor him closely through the next few days and hopefully he starts to show more improvement during this time period. Encouraging him to stay prone as much as he can while he is laying down. Also encouraged him to continue to get out of bed and to move around and to be very patient with his disease process as it is a very slow recovery. Hopefully he remains engaged with his friends and family's on the phone so his parents will stay elevated as well. He does not appear to be depressed at this time and will continue monitoring his psychological status as well. Review of Systems 10-point ROS is otherwise unremarkable Physical Examination - Vital Signs Temperature: 97.5 F Blood Pressure: 132/87 Pulse: 71 Respirations: 28 Pulse Ox (%): 96 - Physical Exam General: Alert, In no apparent distress, Oriented x3 Respiratory: Clear to auscultation bilaterally, Normal air movement Cardiovascular: Regular rate/rhythm, Normal S1 S2, No murmurs Gastrointestinal: Normal bowel sounds, Soft and benign, Non-distended, No tenderness Musculoskeletal: No clubbing, No swelling, No tenderness Neurological: Sensation intact, Cranial nerves 3-12 intact Other Physical/Emotional Findings: Patient strains is improving. Patient's cardiac status appears to be stable. Tachypneic - Studies Medications List Reviewed: Yes Assessment & Plan - Problems (Diagnosis) (1) Pneumonia due to COVID-19 virus Current Visit: Yes Status: Acute (2) Hypoxemia Current Visit: Yes Status: Acute (3) Acute respiratory failure due to severe acute respiratory syndrome coronavirus 2 (SARS-CoV-2) infection Current Visit: Yes Status: Acute - Plan Continue with plan of care as mentioned below 1. Continue with IV steroids 2. Chest x-ray with no significant changes, maybe some mild improvement. 3. Alternating from high-flow to BiPAP; will try to continue to wean down his FiO2. 4. Continue with albuterol inhaler therapy as needed 5. Monitor patient's inflammatory markers; D-dimer was elevated yesterday. Will repeat labs tomorrow. Patient remains on Eliquis. 6. Encourage patient to remain prone as much as possible when lying down. 7. Monitor patient for any signs of depression. Currently his psychological status remains stable. He is in good spirits at this time. 8. GI prophylaxis Discharge Plan: Home Plan to discharge in: Greater than 2 days - Advance Directives Does patient have a Living Will: Yes Does patient have a Durable POA for Healthcare: Yes - Code Status/Comfort Care Code Status: Full Code Critical Care: No Time Spent Managing PTS Care (In Minutes): 35
--- NOTE | 2020-08-29 19:59 | P.PN ---
Subjective Date of Service: 08/29/20 Chief Complaint: Respiratory failure from tobar virus Patient is still little short of breath however he is progress same oxygen requirements have been declining Review of Systems General: Weakness Respiratory: Shortness of Breath Physical Examination - Vital Signs Temperature: 97.7 F Blood Pressure: 130/93 Pulse: 91 Respirations: 28 Pulse Ox (%): 91 - Physical Exam General: Alert, Moderate distress Respiratory: Crackles/rales Cardiovascular: No edema, Regular rate/rhythm Other Physical/Emotional Findings: Patient strains is improving. Patient's cardiac status appears to be stable. Tachypneic - Studies Microbiology Data (last 24 hrs): 08/24/20 11:20 Blood - Blood Aerobic Blood Culture - Final No growth in 5 days. 08/24/20 11:20 Blood - Blood Anaerobic Blood Culture - Final No growth in 5 days. 08/24/20 11:30 Blood - Blood Aerobic Blood Culture - Final No growth in 5 days. 08/24/20 11:30 Blood - Blood Anaerobic Blood Culture - Final No growth in 5 days. Medications List Reviewed: Yes Assessment & Plan - Problems (Diagnosis) (1) Acute respiratory failure due to severe acute respiratory syndrome coronavirus 2 (SARS-CoV-2) infection Current Visit: Yes Status: Acute Plan: Patient is gradually improving continue to titrate O2 down his CRP is none less than 50 vital signs stable
[2020-08-29] MEDS: ATORVASTATIN 40 MG TAB PO SCH (20:05)
[2020-08-29] MEDS: MELATONIN 3 MG TABLET PO SCH (20:05)
[2020-08-30 06:01] LABS: C-Reactive Protein 13.8 mg/L (<3.00); Potassium 4.6 mmol/L (3.5-5.1)
--- NOTE | 2020-08-30 06:50 | P.PN ---
Subjective Date of Service: 08/30/20 Chief Complaint: Respiratory failure from tobar virus Still short of breath improving oxygen requirements have been declining Review of Systems General: Weakness Respiratory: Shortness of Breath Physical Examination - Vital Signs Temperature: 97.4 F Blood Pressure: 135/86 Pulse: 89 Respirations: 18 Pulse Ox (%): 95 - Physical Exam Other Physical/Emotional Findings: Patient strains is improving. Patient's cardiac status appears to be stable. Tachypneic - Studies Microbiology Data (last 24 hrs): 08/24/20 11:20 Blood - Blood Aerobic Blood Culture - Final No growth in 5 days. 08/24/20 11:20 Blood - Blood Anaerobic Blood Culture - Final No growth in 5 days. 08/24/20 11:30 Blood - Blood Aerobic Blood Culture - Final No growth in 5 days. 08/24/20 11:30 Blood - Blood Anaerobic Blood Culture - Final No growth in 5 days. Medications List Reviewed: Yes Assessment & Plan - Problems (Diagnosis) (1) Acute respiratory failure due to severe acute respiratory syndrome coronavirus 2 (SARS-CoV-2) infection Current Visit: Yes Status: Acute Plan: Gradually improving continue to wean down on the oxygen CRP is less than 15 continue with present steroid dose
[2020-08-30] MEDS: INSULIN -REGULAR HUMAN 50 UNIT/0.5 ML ML SQ SCH ×4 (07:30→21:00)
[2020-08-30] MEDS: FLUCONAZOLE 100 MG TAB PO SCH (07:49)
[2020-08-30] MEDS: THIAMINE HCL 100 MG TABLET PO SCH (07:49)
[2020-08-30] MEDS: SITAGLIPTIN PHOS 100 MG TAB PO SCH (07:49)
[2020-08-30] MEDS: SPIRONOLACTONE 25 MG TABLET PO SCH (07:49)
[2020-08-30] MEDS: VITAMIN D 1000 UNIT TAB PO SCH (07:50)
[2020-08-30] MEDS: FAMOTIDINE 20 MG/2 ML VIAL IV SCH ×2 (07:50→20:34)
[2020-08-30] MEDS: METHYLPREDNISOLONE 125 MG INJ IV SCH ×2 (07:50→20:34)
[2020-08-30] MEDS: FUROSEMIDE 20 MG/ 2ML VIAL IV SCH (07:50)
[2020-08-30] MEDS: APIXABAN 5 MG TABLET PO SCH ×2 (07:50→20:34)
[2020-08-30] MEDS ORDERED: CETIRIZINE HCL 5 MG TABLET PO PRN (09:00)
[2020-08-30] MEDS: FLUTICASONE 50MCG NASAL SPRAY NAS SCH ×2 (09:16→20:35)
--- NOTE | 2020-08-30 14:50 | P.PN ---
Subjective Date of Service: 08/30/20 Chief Complaint: Respiratory failure from tobar virus Subjective: Other (Patient reports improvement in shortness of breath. On high- flow oxygen at this time.) Physical Examination - Vital Signs Temperature: 96.5 F Blood Pressure: 117/79 Pulse: 79 Respirations: 21 Pulse Ox (%): 86 - Physical Exam General: Alert, In no apparent distress, Oriented x3, Cooperative HEENT: Atraumatic Neck: Supple Respiratory: Other (Patient on high-flow oxygen) Cardiovascular: Normal pulses Musculoskeletal: No tenderness, No warmth Neurological: Normal speech, Normal strength at 5/5 x4 extr, Normal tone, Normal affect Other Physical/Emotional Findings: Patient on high-flow oxygen. Saturations improved. - Studies Microbiology Data (last 24 hrs): 08/24/20 11:20 Blood - Blood Aerobic Blood Culture - Final No growth in 5 days. 08/24/20 11:20 Blood - Blood Anaerobic Blood Culture - Final No growth in 5 days. 08/24/20 11:30 Blood - Blood Aerobic Blood Culture - Final No growth in 5 days. 08/24/20 11:30 Blood - Blood Anaerobic Blood Culture - Final No growth in 5 days. Medications List Reviewed: Yes Assessment & Plan Discharge Plan: Home Plan to discharge in: 48 Hours Physician Review Additional Text: Impression: Dyspnea secondary to acute respiratory failure with hypoxia secondary to bilateral COVID 19 Plan: Patient appears improved. Case discussed with pulmonology. Continue IV steroids. Patient currently on high-flow oxygen. Continue to wean off. Continue to monitor CRP. Patient on Eliquis due to high risk for blood clot. Encourage ambulation. Will recheck lab tomorrow. Continue Aldactone. Discontinue Lasix. Will continue monitor and adjust appropriately. Anticipate improvement over the next 48 hr. Time Spent Managing Pts Care (In Minutes): 55
[2020-08-30] MEDS: ATORVASTATIN 40 MG TAB PO SCH (20:34)
[2020-08-30] MEDS: MELATONIN 3 MG TABLET PO SCH (20:34)
[2020-08-31 06:13] LABS: C-Reactive Protein 12.8 mg/L (<3.00); Magnesium 2.9 mg/dL (1.8-2.4); Potassium 4.9 mmol/L (3.5-5.1)
[2020-08-31] MEDS: INSULIN -REGULAR HUMAN 50 UNIT/0.5 ML ML SQ SCH ×4 (07:30→20:29)
--- NOTE | 2020-08-31 08:34 | P.PN ---
Subjective Date of Service: 08/31/20 Chief Complaint: Respiratory failure from tobar virus Subjective: Other (Patient feels better. Still requiring high-flow oxygen.) Physical Examination - Vital Signs Temperature: 97.1 F Blood Pressure: 131/84 Pulse: 61 Respirations: 22 Pulse Ox (%): 85 - Physical Exam General: Alert HEENT: Atraumatic Neck: Supple Respiratory: Other (Patient on high-flow oxygen. Patient appears stable.) Cardiovascular: Normal pulses Neurological: Normal speech, Normal strength at 5/5 x4 extr, Normal tone, Normal affect Other Physical/Emotional Findings: Patient on high-flow oxygen. Saturations improved. - Studies Medications List Reviewed: Yes Assessment & Plan Discharge Plan: Home Plan to discharge in: 48 Hours Physician Review Additional Text: Impression: Dyspnea secondary to acute respiratory failure with hypoxia secondary to bilateral COVID 19 Plan: Patient feels better. Still requiring high-flow oxygen. Continue IV steroids. Continue to wean off high-flow oxygen. Patient on Eliquis due to high risk for blood clots. Will adjust medication accordingly. Continue Aldactone. Lasix was discontinued yesterday. Will discuss further with pulmonology. Anticipate improvement over the next 48 hr. Patient will likely require home oxygen at discharge. Patient will not be able to go home on till patient can be weaned off high-flow oxygen. Time Spent Managing Pts Care (In Minutes): 55
[2020-08-31] MEDS: VITAMIN D 1000 UNIT TAB PO SCH (08:44)
[2020-08-31] MEDS: FLUCONAZOLE 100 MG TAB PO SCH (08:44)
[2020-08-31] MEDS: APIXABAN 5 MG TABLET PO SCH ×2 (08:44→20:28)
[2020-08-31] MEDS: SPIRONOLACTONE 25 MG TABLET PO SCH (08:44)
[2020-08-31] MEDS: FLUTICASONE 50MCG NASAL SPRAY NAS SCH ×2 (08:45→20:29)
[2020-08-31] MEDS: METHYLPREDNISOLONE 125 MG INJ IV SCH ×3 (08:45→20:29)
[2020-08-31] MEDS: FAMOTIDINE 20 MG TAB PO SCH ×2 (09:41→20:28)
[2020-08-31] MEDS: THIAMINE HCL 100 MG TABLET PO SCH (09:41)
--- NOTE | 2020-08-31 12:04 | P.PN ---
Subjective Date of Service: 08/31/20 Chief Complaint: Respiratory failure from tobar virus No change patient is still requiring high concentrations of oxygen CRP is improving chest x-rays are has improved Review of Systems General: Weakness Respiratory: Shortness of Breath Physical Examination - Vital Signs Temperature: 97.1 F Blood Pressure: 131/84 Pulse: 61 Respirations: 22 Pulse Ox (%): 85 - Physical Exam Other Physical/Emotional Findings: Patient on high-flow oxygen. Saturations improved. - Studies Medications List Reviewed: Yes Assessment & Plan - Problems (Diagnosis) (1) Acute respiratory failure due to severe acute respiratory syndrome coronavirus 2 (SARS-CoV-2) infection Current Visit: Yes Status: Acute Plan: Respiratory failure from coronal virus still requiring high concentrations of oxygen agree with increasing dose of Solu-Medrol for now signs otherwise stable continue to monitor
[2020-08-31] MEDS: ATORVASTATIN 40 MG TAB PO SCH (20:28)
[2020-08-31] MEDS: MELATONIN 3 MG TABLET PO SCH (20:28)
[2020-09-01] MEDS: INSULIN -REGULAR HUMAN 50 UNIT/0.5 ML ML SQ SCH ×4 (07:30→20:25)
[2020-09-01] MEDS: METHYLPREDNISOLONE 125 MG INJ IV SCH ×3 (08:37→20:23)
[2020-09-01] MEDS: FLUCONAZOLE 100 MG TAB PO SCH (08:38)
[2020-09-01] MEDS: THIAMINE HCL 100 MG TABLET PO SCH (08:38)
[2020-09-01] MEDS: SPIRONOLACTONE 25 MG TABLET PO SCH (08:38)
[2020-09-01] MEDS: VITAMIN D 1000 UNIT TAB PO SCH (08:38)
[2020-09-01] MEDS: FAMOTIDINE 20 MG TAB PO SCH ×2 (08:39→20:24)
[2020-09-01] MEDS: APIXABAN 5 MG TABLET PO SCH ×2 (09:38→20:24)
[2020-09-01] MEDS: FLUTICASONE 50MCG NASAL SPRAY NAS SCH ×2 (09:47→20:33)
--- NOTE | 2020-09-01 11:52 | P.PN ---
Subjective Date of Service: 09/01/20 Chief Complaint: Respiratory failure from tobar virus No change maybe slight improvement on BiPAP oxygen requirements have been decreasing Review of Systems General: Weakness Respiratory: Shortness of Breath Physical Examination - Vital Signs Temperature: 97.2 F Blood Pressure: 144/91 Pulse: 65 Respirations: 20 Pulse Ox (%): 92 - Physical Exam Other Physical/Emotional Findings: Patient on high-flow oxygen. Saturations improved. - Studies Medications List Reviewed: Yes Assessment & Plan - Problems (Diagnosis) (1) Acute respiratory failure due to severe acute respiratory syndrome coronavirus 2 (SARS-CoV-2) infection Current Visit: Yes Status: Acute Plan: Patient has respiratory failure from tobar virus continue with present treatment in you to wean down on the oxygen
--- NOTE | 2020-09-01 12:45 | P.PN ---
Subjective Date of Service: 09/01/20 Chief Complaint: Respiratory failure from tobar virus Subjective: Other (Slow improving. Desires to go home.) Physical Examination - Vital Signs Temperature: 97.2 F Blood Pressure: 144/91 Pulse: 65 Respirations: 20 Pulse Ox (%): 92 - Physical Exam General: Alert, In no apparent distress HEENT: Atraumatic Respiratory: Other (Patient currently on high-flow oxygen) Cardiovascular: Normal pulses Neurological: Normal speech, Normal strength at 5/5 x4 extr, Normal tone, Normal affect Other Physical/Emotional Findings: Patient on high-flow oxygen. Saturations improved. - Studies Medications List Reviewed: Yes Assessment & Plan Discharge Plan: Home Plan to discharge in: 48 Hours Physician Review Additional Text: Impression: Dyspnea secondary to acute respiratory failure with hypoxia secondary to bilateral COVID 19 Plan: Patient is slowly improving. Still requiring high-flow oxygen. Continue to wean off. CRP elevated from yesterday. But Solu-Medrol was increased frequency. Case discussed in detail with pulmonology. Will continue with current management and try to wean off high-flow oxygen. Anticipate improvement over the next 48 hr. Time Spent Managing Pts Care (In Minutes): 55
[2020-09-01] MEDS: ATORVASTATIN 40 MG TAB PO SCH (20:24)
[2020-09-01] MEDS: MELATONIN 3 MG TABLET PO SCH (20:24)
[2020-09-02 05:39] LABS: C-Reactive Protein 32.4 mg/L (<3.00); Ferritin 1357.9 ng/mL (26-388); Magnesium 2.7 mg/dL (1.8-2.4); Potassium 4.9 mmol/L (3.5-5.1)
--- NOTE | 2020-09-02 07:18 | RAD REPORT ---
EXAM DESCRIPTION: [facility] Single View09/02/2020 6:19 am CLINICAL HISTORY: Pneumonia COMPARISON: August 28, 2020 FINDINGS: Development of moderate subcutaneous emphysema within the neck and upper chest . There pro bably is pneumomediastinum. Mild bilateral pulmonary opacities. The heart is normal size IMPRESSION: Development of subcutaneous emphysema within the neck and upper chest. There probably is pneumomediastinum
[2020-09-02] MEDS: INSULIN -REGULAR HUMAN 50 UNIT/0.5 ML ML SQ SCH ×4 (07:30→21:06)
[2020-09-02] MEDS: FAMOTIDINE 20 MG TAB PO SCH ×2 (08:25→21:06)
[2020-09-02] MEDS: SPIRONOLACTONE 25 MG TABLET PO SCH (08:25)
[2020-09-02] MEDS: APIXABAN 5 MG TABLET PO SCH ×2 (08:25→21:06)
[2020-09-02] MEDS: VITAMIN D 1000 UNIT TAB PO SCH (08:25)
[2020-09-02] MEDS: FLUCONAZOLE 100 MG TAB PO SCH (08:26)
[2020-09-02] MEDS: THIAMINE HCL 100 MG TABLET PO SCH (08:26)
[2020-09-02] MEDS: METHYLPREDNISOLONE 125 MG INJ IV SCH (08:26)
[2020-09-02] MEDS: FLUTICASONE 50MCG NASAL SPRAY NAS SCH ×2 (09:46→22:15)
[2020-09-02] MEDS: FUROSEMIDE 20 MG/ 2ML VIAL IV SCH (10:19)
--- NOTE | 2020-09-02 12:39 | P.PN ---
Subjective Date of Service: 09/02/20 Chief Complaint: Respiratory failure from tobar virus Subjective: Other (Patient reports improvement. Now off high-flow oxygen.) Physical Examination - Vital Signs Temperature: 97.0 F Blood Pressure: 138/87 Pulse: 55 Respirations: 19 Pulse Ox (%): 93 - Physical Exam General: Alert Neck: Supple Respiratory: Other (Patient off high-flow oxygen. On nasal cannula.) Cardiovascular: Normal pulses, Regular rate/rhythm Neurological: Normal speech, Normal strength at 5/5 x4 extr, Normal tone, Normal affect Other Physical/Emotional Findings: Patient on high-flow oxygen. Saturations improved. - Studies Medications List Reviewed: Yes Assessment & Plan Discharge Plan: Home Plan to discharge in: 24 Hours Physician Review Additional Text: Impression: Dyspnea secondary to acute respiratory failure with hypoxia secondary to bilateral COVID 19 Plan: Patient clinically improved. Now off high-flow. Continue to wean off oxygen. X-ray shows some subcu emphysema. Will monitor this closely. Continue with Solu-Medrol. Case discussed with pulmonology. Likely discharge tomorrow. Patient will need home oxygen at discharge. Will continue to reassess. Time Spent Managing Pts Care (In Minutes): 55
--- NOTE | 2020-09-02 12:56 | P.PN ---
Subjective Date of Service: 09/02/20 Chief Complaint: Respiratory failure from tobar virus Patient is clinically improving he is now on nasal cannula oxygen has mild subcutaneous emphysema Review of Systems General: Weakness Respiratory: Shortness of Breath Physical Examination - Vital Signs Temperature: 97.0 F Blood Pressure: 138/87 Pulse: 55 Respirations: 19 Pulse Ox (%): 93 - Physical Exam Other Physical/Emotional Findings: Patient on high-flow oxygen. Saturations improved. - Studies Medications List Reviewed: Yes Assessment & Plan - Problems (Diagnosis) (1) Acute respiratory failure due to severe acute respiratory syndrome coronavirus 2 (SARS-CoV-2) infection Current Visit: Yes Status: Acute Plan: Respiratory failure is clinically improving currently on nasal cannula oxygen his mild subcutaneous emphysema continue with high-flow oxygen and nasal cannula he continues to remain on 4 L of nasal cannula oxygen this sats over 90% consider discharge I have reduced his steroids to 40 mg t.i.d. CRP is declining Physician Review Additional Text: Impression: Dyspnea secondary to acute respiratory failure with hypoxia secondary to bilateral COVID 19 Plan: Patient clinically improved. Now off high-flow. Continue to wean off oxygen. X-ray shows some subcu emphysema. Will monitor this closely. Continue with Solu-Medrol. Case discussed with pulmonology. Likely discharge tomorrow. Patient will need home oxygen at discharge. Will continue to reassess.
[2020-09-02] MEDS: METHYLPREDNISOLONE 40 MG INJ IV SCH ×2 (14:30→21:06)
--- NOTE | 2020-09-02 17:04 | RAD REPORT ---
EXAM DESCRIPTION: RAD - Chest Single View - 09/02/2020 4:54 pm CLINICAL HISTORY: eval subcu emphsema, pneumomediastinum Chest pain. COMPARISON: Chest Single View dated 09/02/2020; Chest Single View dated 08/28/2020; Chest Single View dated 08/24/2020; Chest Single View dated 03/08/2019; Chest For Pe Angio dated 08/24/2020 FINDINGS: Portable technique limits examination quality. Moderate subcutaneous emphysema and pneumomediastinum again seen, unchanged. Bibasilar lung opacities appears slightly progressive on the left. The heart is upper limit normal in size. IMPRESSION: No significant change in subcutaneous emphysema in the neck and pneumomediastinum since the prior study.
[2020-09-02] MEDS ORDERED: ATORVASTATIN 20 MG TAB PO SCH (21:00)
[2020-09-02] MEDS: MELATONIN 3 MG TABLET PO SCH (21:06)
[2020-09-02] MEDS ORDERED: TEMAZEPAM 15 MG CAP PO PRN (21:54)
[2020-09-02] MEDS ORDERED: TEMAZEPAM 15 MG CAP ONE (22:17)
[2020-09-03 05:19] LABS: Absolute Lymphocytes (CBC) 0.3 K/uL (0.7-4.9); Basophils % 0.1 % (0-1.3); Hematocrit 41.9 % (39.6-49.0); Lymphocytes % 1.8 % (15.3-44.8); MPV 8.6 fL (7.6-11.3); RBC Red Blood Cell Count 4.66 M/uL (4.33-5.43)
[2020-09-03 05:26] LABS: C-Reactive Protein 13.2 mg/L (<3.00); Ferritin 1240.5 ng/mL (26-388); Magnesium 2.7 mg/dL (1.8-2.4)
[2020-09-03 05:35] VITALS: BMI 23.6
[2020-09-03 05:46] LABS: Blood Morphology Comment NOT SEEN (NOT SEEN); Platelet Estimate ADEQ
--- NOTE | 2020-09-03 07:26 | RAD REPORT ---
EXAM DESCRIPTION: Zohrat Single View09/03/2020 6:37 am CLINICAL HISTORY: Chest pain COMPARISON: September 02 FINDINGS: No significant change in the subcutaneous emphysema and pneumomediastinum. Bilateral pulmonary opacities have mildly worsened. Heart is normal size. IMPRESSION: No change in subcutaneous emphysema pneumomediastinum Mild worsening in the bilateral pneumonia which is moderate in the lung bases
[2020-09-03] MEDS: INSULIN -REGULAR HUMAN 50 UNIT/0.5 ML ML SQ SCH ×3 (07:30→16:06)
[2020-09-03] MEDS: FAMOTIDINE 20 MG TAB PO SCH (08:25)
[2020-09-03] MEDS: VITAMIN D 1000 UNIT TAB PO SCH (08:25)
[2020-09-03] MEDS: SPIRONOLACTONE 25 MG TABLET PO SCH (08:25)
[2020-09-03] MEDS: APIXABAN 5 MG TABLET PO SCH (08:25)
[2020-09-03] MEDS: FUROSEMIDE 20 MG/ 2ML VIAL IV SCH (08:25)
[2020-09-03] MEDS: THIAMINE HCL 100 MG TABLET PO SCH (08:25)
[2020-09-03] MEDS: FLUCONAZOLE 100 MG TAB PO SCH (08:25)
[2020-09-03] MEDS: METHYLPREDNISOLONE 40 MG INJ IV SCH ×2 (08:26→13:08)
[2020-09-03] MEDS: FLUTICASONE 50MCG NASAL SPRAY NAS SCH (08:26)
--- NOTE | 2020-09-03 09:22 | P.PN ---
Subjective Date of Service: 09/03/20 Chief Complaint: Respiratory failure from tobar virus Subjective: Improving Physical Examination - Vital Signs Temperature: 97.2 F Blood Pressure: 126/89 Pulse: 66 Respirations: 24 Pulse Ox (%): 89 - Physical Exam General: Alert, Cooperative HEENT: Atraumatic Neck: Supple Respiratory: Other (Patient on 2 L per nasal cannula. Some subcu emphysema noted.) Cardiovascular: Normal pulses Neurological: Normal speech, Normal strength at 5/5 x4 extr, Normal tone, Normal affect Other Physical/Emotional Findings: Patient on high-flow oxygen. Saturations improved. - Studies Medications List Reviewed: Yes Assessment & Plan Discharge Plan: Home Plan to discharge in: 24 Hours Physician Review Additional Text: Impression: Dyspnea secondary to acute respiratory failure with hypoxia secondary to bilateral COVID 19 Subcutaneous emphysema with pneumomediastinum Plan: Patient clinically improved. Now on 2 L per nasal cannula. Will decrease steroids. Continue current treatment. Will discuss with pulmonology about possible discharge today with home oxygen. Time Spent Managing Pts Care (In Minutes): 55
[2020-09-03 10:00] VITALS: O2SAT 92
--- NOTE | 2020-09-03 11:09 | P.PN ---
Subjective Date of Service: 09/03/20 Chief Complaint: Respiratory failure from tobar virus Patient is clinically improving feeling better saturation satisfactory nasal cannula oxygen Review of Systems Respiratory: Shortness of Breath Physical Examination - Vital Signs Temperature: 97.2 F Blood Pressure: 126/89 Pulse: 66 Respirations: 24 Pulse Ox (%): 89 - Physical Exam General: Alert, Oriented x3, Mild distress Other Physical/Emotional Findings: Patient on high-flow oxygen. Saturations improved. - Studies Medications List Reviewed: Yes Assessment & Plan - Problems (Diagnosis) (1) Acute respiratory failure due to severe acute respiratory syndrome coronavirus 2 (SARS-CoV-2) infection Current Visit: Yes Status: Acute Plan: Patient is clinically improving is a nasal cannula oxygen plan for discharge on steroids an anti coagulated follow-up with me in 1 or 2 weeks encourage prone pressure ventilation at home
[2020-09-03 14:15] VITALS: BP 108/73
--- NOTE | 2020-09-03 14:39 | P.DS ---
Admission Date: 08/24/20 Discharge Date: 09/03/20 Primary Care Provider: None Disposition: ROUTINE DISCHARGE Discharge Condition: GOOD Reason for Admission: Respiratory failure from tobar virus Consultations: Pulmonology-Dr. Benitez Procedures: CT Chest: FINDINGS: A pulmonary embolus is not seen. A thoracic aortic aneurysm is not noted. The ascending aorta has an AP diameter of 3.9 centimeters Small pleural effusions. A pericardial effusion is not seen. Moderate bilateral ground-glass opacities within the lungs IMPRESSION: Negative for a pulmonary embolism. Moderate bilateral ground-glass opacities within the lungs can be seen with Covid pneumonia Medical problem List: Dyspnea secondary to acute respiratory failure with hypoxia secondary to bilateral COVID 19 Subcutaneous emphysema with pneumomediastinum Brief History of Present Illness: 60-year-old male presented to the emergency room with increased shortness of breath. Patient was diagnosed with COVID-19 pneumonia on . He is gradually being getting more short of breath so he came into the hospital for further evaluation. In the emergency room, patient was found have diffuse inflammation in infiltrates on his chest x-ray. Patient was severely hypoxic and was placed on BiPAP. Hospital Course: Patient presented with shortness of breath secondary to acute respiratory failure with hypoxia secondary to Bilateral COVID 19 pneumonia. The course of his stay was prolonged. Patient required BiPAP, high-flow, steroids and other medication. Pulmonology was consulted during the course of his stay. His condition improved. At discharge patient without significant shortness of breath. Patient still requires oxygen. Patient did develop some subcutaneous emphysema. No pneumothorax was identified. CT scan showed no pulmonary embolism. At discharge he will continue with oxygen currently on 2 L. Recommend to maintain oxygen saturations above 93%. At discharge pulmonology recommends to continue prednisone 20 mg 1 pill twice daily for 7 days, then 1 pill daily for 7 days. The patient will also continue with Eliquis 5 mg 1 pill twice daily for prevention of blood clots. Other medication includes vitamin-C 500 mg 3 times a day, thiamine 100 mg daily, and vitamin-D 2000 units daily. Recommend follow up with pulmonology within 1 week. Pulmonology will continue to monitor and adjust medication. Education on COVID19 isolation will be provided. Patient will continue with facemask use, hand washing and social distance seen. Vital Signs/Physical Exam: Temp Pulse Resp BP Pulse Ox 97.5 F 85 24 H 108/73 89 L 09/03/20 12:00 09/03/20 12:00 09/03/20 11:08 09/03/20 12:00 09/03/20 12:00 General: Alert, In no apparent distress, Oriented x3, Cooperative HEENT: Atraumatic Neck: Supple Respiratory: Clear to auscultation bilaterally, Normal air movement Cardiovascular: Normal pulses, Regular rate/rhythm Gastrointestinal: Normal bowel sounds, No masses, No rebound, No guarding Musculoskeletal: No erythema, No tenderness, No warmth Integumentary: No tenderness/swelling, No erythema, No warmth, No cyanosis Neurological: Normal speech, Normal strength at 5/5 x4 extr, Normal tone, Normal affect Other Physical/Emotional Findings: Patient on high-flow oxygen. Saturations improved. Laboratory Data at Discharge: WBC 14.0 K/uL (4.3-10.9) H 09/03/20 03:46 Hgb 14.0 g/dL (13.6-17.9) 09/03/20 03:46 Hct 41.9 % (39.6-49.0) 09/03/20 03:46 Plt Count 269 K/uL (152-406) D 09/03/20 03:46 PT 15.2 SECONDS (9.5-12.5) H 08/25/20 04:53 INR 1.29 08/25/20 04:53 APTT 27.2 SECONDS (24.3-36.9) 08/25/20 04:53 Sodium 137 mmol/L (136-145) 09/02/20 04:46 Potassium 4.9 mmol/L (3.5-5.1) 09/02/20 04:46 BUN 28 mg/dL (7-18) H 09/02/20 04:46 Creatinine 0.94 mg/dL (0.55-1.3) 09/02/20 04:46 Glucose 140 mg/dL (74-106) H 09/02/20 04:46 Phosphorus 4.8 mg/dL (2.5-4.9) 08/28/20 04:24 Magnesium 2.7 mg/dL (1.8-2.4) H 09/03/20 03:46 Total Bilirubin 0.5 mg/dL (0.2-1.0) 08/25/20 04:53 AST 59 U/L (15-37) H 08/25/20 04:53 ALT 62 U/L (12-78) 08/25/20 04:53 Alkaline Phosphatase 51 U/L (45-117) 08/25/20 04:53 Triglycerides 133 mg/dL (<150) 08/25/20 04:53 Cholesterol 152 mg/dL (<200) 08/25/20 04:53 HDL Cholesterol 16 mg/dL (40-60) L 08/25/20 04:53 Cholesterol/HDL Ratio 9.50 08/25/20 04:53 Lipase 274 U/L (73-393) 08/24/20 11:20 Home Medications: Apixaban [Eliquis] 5 mg PO BID #60 tablet 09/03/20 Ascorbate Calcium [Vitamin C] 500 mg PO TID #90 tablet 09/03/20 Cholecalciferol (Vitamin D3) [Vitamin D 1000 Iu Tab*] 2,000 unit PO DAILY #60 tab 09/03/20 Melatonin [Melatonin*] 3 mg PO BEDTIME #30 tablet 09/03/20 Thiamine HCl 100 mg PO DAILY #30 tablet 09/03/20 predniSONE [Deltasone] 20 mg PO SEECOM #21 tab 09/03/20 New Medications: Apixaban [Eliquis] 5 mg PO BID #60 tablet Melatonin [Melatonin*] 3 mg PO BEDTIME #30 tablet predniSONE [Deltasone] 20 mg PO SEECOM #21 tab Thiamine HCl 100 mg PO DAILY #30 tablet Ascorbate Calcium [Vitamin C] 500 mg PO TID #90 tablet Cholecalciferol (Vitamin D3) [Vitamin D 1000 Iu Tab*] 2,000 unit PO DAILY #60 tab Patient Discharge Instructions: Recommend follow up with PCP in 1-2 weeks. Patient presented with shortness of breath secondary to acute respiratory failure with hypoxia secondary to Bilateral COVID 19 pneumonia. The course of his stay was prolonged. Patient required BiPAP, high-flow, steroids and other medication. Pulmonology was consulted during the course of his stay. His condition improved. At discharge patient without significant shortness of breath. Patient still requires oxygen. Patient did develop some subcutaneous emphysema. No pneumothorax was identified. CT scan showed no pulmonary embolism. At discharge he will continue with oxygen currently on 2 L. Recommend to maintain oxygen saturations above 93%. At discharge pulmonology recommends to continue prednisone 20 mg 1 pill twice daily for 7 days, then 1 pill daily for 7 days. The patient will also continue with Eliquis 5 mg 1 pill twice daily for prevention of blood clots. Other medication includes vitamin-C 500 mg 3 times a day, thiamine 100 mg daily, and vitamin-D 2000 units daily. Recommend follow up with pulmonology within 1 week. Pulmonology will continue to monitor and adjust medication. Education on COVID19 isolation will be provided. Patient will continue with facemask use, hand washing and social distance seen. Diet: Regular Activity: Ad binu Followup: Tony Benitez MD [ACTIVE - CAN ADMIT] - Zoran Valentino MD [ACTIVE - CAN ADMIT] - NONE,NONE [Primary Care Provider] - Time spent managing pt's care (in minutes): 55
[2020-09-03 16:51] VITALS: TEMP 97.1
== END 2020-09-03 17:49 | disposition home or self-care (01) | DRG 177 ==
LOC: ER 10:22 → ERHOLD 14:37 → 3RD-ICU 20:51
PROVIDERS: ADMIT Hospitalist; ATTEND Family Medicine
PROC: 5A09557 Assistance with Respiratory Ventilation, Greater than 96 Consecutive Hours, Continuous Positive Airway Pressure (ICD-10-PCS; principal; 2020-08-25)
DX: U07.1 COVID-19 (principal); J12.89 Other viral pneumonia; J80 Acute respiratory distress syndrome; T79.7XXA Traumatic subcutaneous emphysema, initial encounter; I10 Essential (primary) hypertension; J43.8 Other emphysema; R73.9 Hyperglycemia, unspecified; Z88.5 Allergy status to narcotic agent; Z91.09 Other allergy status, other than to drugs and biological substances; Z87.891 Personal history of nicotine dependence; Z79.01 Long term (current) use of anticoagulants; Z79.52 Long term (current) use of systemic steroids; Z79.899 Other long term (current) drug therapy
CPT/HCPCS: 36415; 71045; 71275; 80048; 80053; 80061; 80076; 82728; 82805; 82947; 83605; 83690; 83735; 83880; 84100; 84145; 84484; 85025; 85379; 85610; 85730; 86140; 87040; 93005; 94002; 94003; 94660; 96361; 96374; 97116; 97161; 97530; 99285; J1100; J1940; J2920; J2930; J7030; Q9967

== ENCOUNTER 2020-09-04 17:26 | Emergency (ER) | payer BC ==
[2020-09-04 18:00] LABS: Absolute Lymphocytes (CBC) 0.2 K/uL (0.7-4.9); Basophils % 0.2 % (0-1.3); Hematocrit 44.1 % (39.6-49.0); Lymphocytes % 1.1 % (15.3-44.8); MPV 8.7 fL (7.6-11.3); RBC Red Blood Cell Count 4.96 M/uL (4.33-5.43)
[2020-09-04 18:04] LABS: Protime INR 1.07
[2020-09-04 18:20] LABS: ALT/SGPT 54 U/L (12-78); AST/SGOT 25 U/L (15-37); Albumin 2.6 g/dL (3.4-5.0); Alkaline Phosphatase 97 U/L (45-117); BUN Blood Urea Nitrogen 25 mg/dL (7-18); Bicarbonate 24 mmol/L (21-32); Bilirubin Direct 0.1 mg/dL (0-0.2); Bilirubin Total 0.4 mg/dL (0.2-1.0); Glucose Level 184 mg/dL (74-106); Magnesium 2.6 mg/dL (1.8-2.4); NT PRO-BNP 166 pg/mL (<125); Potassium 4.4 mmol/L (3.5-5.1); Protein, Total 6.6 g/dL (6.4-8.2); Sodium Level 137 mmol/L (136-145); Troponin (Emerg Dept Use Only) < 0.02 ng/mL (0.0-0.045)
[2020-09-04] MEDS ORDERED: METHYLPREDNISOLONE 40 MG INJ ONE (18:45)
[2020-09-04] MEDS ORDERED: AZITHROMYCIN 500 MG INJ IVPB ONE (18:45)
[2020-09-04] MEDS ORDERED: NA CHLORIDE 0.9% 250 ML ONE (18:45)
[2020-09-04] MEDS ORDERED: FAMOTIDINE 20 MG/2 ML VIAL IV ONE (18:46)
[2020-09-04] MEDS ORDERED: PIPER/TAZO/NS 3.375gm 3.375 GM/100 ML BAG ONE (18:46)
--- NOTE | 2020-09-04 19:06 | RAD REPORT ---
EXAM DESCRIPTION: CT - Chest For Pe Angio - 09/04/2020 6:52 pm CLINICAL HISTORY: Shortness of breath COMPARISON: August 24, 2020 TECHNIQUE: Dynamically enhanced axial 3 mm thick images of the chest were obtained during administra tion of <100> mL Isovue 370 IV contrast. Coronal and oblique reconstruction images were generated and reviewed. Exam utilizes a protocol for optimal evaluation of pulmonary arterial tree. Maximum intensity projections 3D imaging was utilized All CT scans are performed using dose optimization technique as appropriate and may include automated exposure control or mA/KV adjustment according to patient size. FINDINGS: A pulmonary embolus is not seen. A thoracic aortic aneurysm is not noted. The ascending thoracic aorta measures 3.9 centimeters A pleural effusion is not seen. A pericardial effusion is not seen. Large amount of subcutaneous emphysema within the upper chest and neck. Moderate pneumomediastinum is present. No pneumothorax. Mild bilateral ground-glass opacities have diminished IMPRESSION: Negative for a pulmonary embolism. Pneumomediastinum and subcutaneous emphysema Partial resolution in mild bilateral ground-glass opacities probably Covid pneumonia
--- NOTE | 2020-09-04 19:07 | RAD REPORT ---
[facility] 6[facility]38 pm CLINICAL HISTORY: Shortness of breath COMPARISON: September 03 FINDINGS: Bilateral pulmonary opacities have mildly improved. Subcutaneous emphysema upper chest/lower neck unchanged. Pneumomediastinum unchanged. Heart is normal size
--- NOTE | 2020-09-04 19:07 | ER ---
Nurse's Notes [facility] Name: Gregg Olea Age: 60 yrs Sex: Male : 1960 Arrival Date: 09/04/2020 Time: 17:30 Bed 13 Private MD: Diagnosis: Emphysema, unspecified-subcutaneous;Coronavirus infection, unspecified Presentation: 09/04 18:03 Chief complaint: EMS states: pt discharge yesterday from covid unit w/ supplemental o2. zb Started having SOB and swelling in his face. called EMS. EMS reports patient tachycardiac and desating in the 70's. Coronavirus screen: Client presents with at least one sign or symptom that may indicate coronavirus-19. Standard/surgical mask placed on the client. Provider contacted for isolation considerations. Ebola Screen: No symptoms or risks identified at this time. Initial Sepsis Screen: Does the patient meet any 2 criteria? No. Patient's initial sepsis screen is negative. Does the patient have a suspected source of infection? No. Patient's initial sepsis screen is negative. Risk Assessment: Do you want to hurt yourself or someone else? Patient reports no desire to harm self or others. Onset of symptoms was September 04, 2020. 18:03 Method Of Arrival: EMS zb 18:03 Acuity: EMILY 2 zb Triage Assessment: 18:17 General: Appears distressed, uncomfortable, Behavior is calm, cooperative, appropriate zb for age, Reports fatigue for hx of covid . Pain: Denies pain. EENT: Eyes bilateral swelling . Neuro: Level of Consciousness is awake, alert, Oriented to person, place, time, situation. Cardiovascular: Heart tones S1 S2 Capillary refill Patient's skin is warm and dry. Respiratory: Reports shortness of breath at rest labored breathing Airway is patent Respiratory effort is labored, with nasal flaring, Respiratory pattern is tachypnea Breath sounds with crackles bilaterally. in right upper lobe and left upper lobe Crepitus is noted on right supraclavicular area, right clavicle, left supraclavicular area, left clavicle, anterior aspect of right upper chest and anterior aspect of left upper chest Onset: The symptoms/episode began/occurred today, the patient has moderate shortness of breath. GI: Abdomen is round non-distended. : No signs and/or symptoms were reported regarding the genitourinary system. Derm: Skin is intact, is healthy with good turgor, Skin is pale. Musculoskeletal: Circulation, motion, and sensation intact. Historical: - Allergies: 18:14 Codeine; zb 18:14 Red Dye; zb - PMHx: 18:14 Anxiety; Hypertension; zb - PSHx: 18:14 rotator cuff; acl; zb - Immunization history:: Adult Immunizations unknown. - Social history:: Smoking status: unknown. Screenin:49 Abuse screen: Denies threats or abuse. Denies injuries from another. Nutritional zb screening: No deficits noted. Tuberculosis screening: No symptoms or risk factors identified. Fall Risk None identified. Assessment: 18:20 Reassessment: See triage notes. zb 19:20 Reassessment: Patient appears in no apparent distress at this time. Patient and/or zb family updated on plan of care and expected duration. Pain level reassessed. famly at bedside . no distressed noted at this time. patient RR normalized. 20:13 Reassessment: hospitalist at bedside. zb 20:51 Cardiovascular: Rhythm is sinus rhythm. zb Vital Signs: 18:03 BP 127 / 89; Pulse 106; Resp 28; Temp 97.0; Pulse Ox 89% on R/A; Weight 81.65 kg; zb Height 6 ft. (182.88 cm); Pain 0/10; 18:17 BP 128 / 90; Pulse 104; Resp 28; Pulse Ox 96% on 15% Non-rebreather mask; zb 20:53 BP 122 / 68; Pulse 65; Resp 18; Pulse Ox 98% 2 lpm ; zb 18:03 Body Mass Index 24.41 (81.65 kg, 182.88 cm) zb ED Course: 17:30 Patient arrived in ED. aa5 17:31 William Rosas PA is PHCP. cp 17:31 William Lee MD is Attending Physician. cp 17:48 Inserted saline lock: 20 gauge in left forearm, using aseptic technique. Blood dh4 collected. 18:03 Sunni Perez, PIYUSH is Primary Nurse. zb 18:13 Triage completed. zb 18:15 Arm band placed on. zb 18:38 XRAY Chest (1 view) In Process Unspecified. EDMS 18:52 CT Chest For PE Angio In Process Unspecified. EDMS 19:05 Yamil Juarez MD is Hospitalizing Provider. cp 19:07 Florencio Cronin DO is Hospitalizing Provider. la1 20:50 No provider procedures requiring assistance completed. IV discontinued, intact, zb bleeding controlled, No redness/swelling at site. Pressure dressing applied. 20:50 Patient has correct armband on for positive identification. Bed in low position. Call zb light in reach. Side rails up X 1. Door closed. Noise minimized. 20:53 Notified Nurse Practitioner and/or Physician Clinical Application Manager of a critical lab result(s), jd3 lactated of 3.0. Administered Medications: 18:43 Drug: SOLU-Medrol 80 mg Route: IVP; Site: left forearm; zb 18:44 Drug: Pepcid 20 mg Route: IVP; Site: left forearm; zb 20:13 Not Given (verbal order per hosptialist ): Zosyn 3.375 grams IVPB once over 60 mins; zb (mix in NS 100 mL) 20:13 Not Given (verbal order per hospitalist ): Zithromax 500 mg IVPB once over 1 hrs; mix zb in 250 mL NS Outcome: 19:06 Decision to Hospitalize by Provider. cp 20:07 Discharge ordered by MD. cp 20:50 Discharged to home via wheelchair, with family. zb 20:50 Condition: stable 20:50 Discharge instructions given to patient, family, Instructed on discharge instructions, follow up and referral plans. Demonstrated understanding of instructions, follow-up care. 20:55 Patient left the ED. zb Signatures: Dispatcher [employer] EDNY Alivia Schneider, RN RN aa5 Herrera Elmore, LUMBER HACKER-C LUMBER HACKER-Cla1 William Rosas, RAMONE PA cp Chilo Jc RN RN Onel Vincent [facility] Sunni Perez RN RN zb Corrections: (The following items were deleted from the chart) 20:55 20:53 Notified Nurse Practitioner and/or Physician Clinical Application Manager of a critical lab jd3 result(s), lactated of 3.1 jd3
--- NOTE | 2020-09-04 19:08 | EDPHYS ---
Physician Documentation [facility] Name: Gregg Olea Age: 60 yrs Sex: Male : 1960 Arrival Date: 09/04/2020 Time: 17:30 Bed 13 Private MD: ED Physician William Lee HPI: 09/04 18:01 This 60 yrs old Male presents to ER via Unassigned with complaints of cp Respiratory Distress. 18:01 The patient has shortness of breath at rest. cp 18:01 Onset: The symptoms/episode began/occurred today. Associated signs and symptoms: cp Pertinent negatives: chest pain, fever. Severity of symptoms: in the emergency department the symptoms have improved. 18:01 Patient reports being discharged from [facility] yesterday after being admitted to ICU for cp respiratory complications from COVID. Patient reports he was discharged home with home oxygen. Concerned about worsening subcutaneous air in face and chest. EMS reports oxygen sats upon arrival of 76%. Historical: - Allergies: 18:14 Codeine; zb 18:14 Red Dye; zb - PMHx: 18:14 Anxiety; Hypertension; zb - PSHx: 18:14 rotator cuff; acl; zb - Immunization history:: Adult Immunizations unknown. - Social history:: Smoking status: unknown. ROS: 18:03 Eyes: Negative for injury, pain, redness, and discharge. cp 18:03 Constitutional: Negative for body aches, chills, fever, poor PO intake. 18:03 Cardiovascular: Negative for chest pain, edema, palpitations. 18:03 Respiratory: Positive for cough, shortness of breath, at rest. 18:03 Abdomen/GI: Negative for abdominal pain, nausea, vomiting, and diarrhea. 18:03 Neuro: Negative for altered mental status, headache, syncope, weakness. 18:03 All other systems are negative. Exam: 17:45 ECG was reviewed by the Attending Physician. cp 18:10 Constitutional: The patient appears alert, awake, non-diaphoretic, non-toxic, well cp developed, well nourished, in obvious distress. 18:10 Head/face: Noted is swelling, that is mild, of the right cheek and left cheek and cp infraorbital bilateral. 18:10 Eyes: Pupils: equal, round, and reactive to light and accomodation, Extraocular movements: intact throughout, Conjunctiva: normal, no exudate, no injection, Sclera: no appreciated abnormality, Lids and lashes: appear normal, bilaterally. 18:10 ENT: External ear(s): are unremarkable, Ear canal(s): are normal, clear, TM's: dullness, bilaterally, Nose: is normal, Mouth: Lips: moist, Oral mucosa: moist, Posterior pharynx: Airway: no evidence of obstruction, patent. 18:10 Neck: ROM/movement: is normal, is supple, without pain, no range of motions limitations. 18:10 Chest/axilla: Palpation: crepitus, that is mild, of the anterior aspect of chest bilateral, tenderness, is not appreciated. 18:10 Cardiovascular: Rate: tachycardic, Rhythm: regular, Edema: is not appreciated, JVD: is not appreciated. 18:10 Respiratory: mild respiratory distress is noted, Respirations: labored breathing, that is mild, intercostal retractions, are absent, Breath sounds: bronchial sounds, that are mild, are heard diffusely, stridor, is not appreciated, wheezing: is not appreciated. 18:10 Abdomen/GI: Inspection: abdomen appears normal, Bowel sounds: active, all quadrants, Palpation: abdomen is soft and non-tender, in all quadrants. 18:10 Back: pain, is absent, ROM is normal. 18:10 Musculoskeletal/extremity: DVT Exam: No signs of deep vein thrombosis. 18:10 Neuro: Orientation: to person, place \T\ time. Mentation: is normal, Motor: moves all fours, strength is normal. Vital Signs: 18:03 BP 127 / 89; Pulse 106; Resp 28; Temp 97.0; Pulse Ox 89% on R/A; Weight 81.65 kg; zb Height 6 ft. (182.88 cm); Pain 0/10; 18:17 BP 128 / 90; Pulse 104; Resp 28; Pulse Ox 96% on 15% Non-rebreather mask; zb 20:53 BP 122 / 68; Pulse 65; Resp 18; Pulse Ox 98% 2 lpm ; zb 18:03 Body Mass Index 24.41 (81.65 kg, 182.88 cm) zb MDM: 17:41 Patient medically screened. aziza 18:00 Differential diagnosis: CHF exacerbation, pulmonary edema, Pulmonary Embolism Sepsis cp respiratory failure. 19:45 Data reviewed: vital signs, nurses notes, lab test result(s), EKG, radiologic studies, cp CT scan, plain films, I have discussed the patient's presentation/case with the attending Emergency Department Physician; and as a result, I will admit patient. 19:45 Test interpretation: by ED physician or midlevel provider: ECG. Physician consultation: patrice ANGELES was called at 19:45, was contacted at 19:45, regarding admission, to the telemetry unit. patient's condition, and will see patient in ED, shortly. 20:28 ED course: I was consulted for admission for Mr. Olea for COVID pneumonia with la1 hypoxia. Patient was discharged yesterday with home oxygen, prescribed 3 L per nasal cannula. At discharge yesterday patient was saturating between 88 and 90% on 3 L per nasal cannula. Patient lives at home with his , during his admission patient was noted to have subcutaneous emphysema and pneumomediastinum without pneumothorax related to positive-pressure ventilation for prolonged periods of time. The noted that patient was developing pockets of air underneath tissues in his neck and under his eyes, this greatly concerned her and for that reason she called EMS. Patient had been breathing the same if not better throughout the day. Patient took off his oxygen the anticipation of EMS arrival, at time of EMS arrival patient had been off of his oxygen for approximately 10 min. Initial oxygen level per EMS was 77% on room air. Patient was placed on non-rebreather and transported to the emergency department. Patient remained on under review throughout his emergency department stay and head CT PE protocol which demonstrated again subcutaneous emphysema and pneumomediastinum without pneumothorax with mild improvement in bilateral COVID findings. At time of examination I placed patient on nasal cannula at 3 liters/minute, discussed plan of care with and patient for greater than 30 min all the while patient remained greater than 93% on 3 L per nasal cannula even while speaking. Patient reports his breathing has not changed any maybe even feeling slightly better in the only reason that presented to the emergency department was because of the subcutaneous emphysema present in the neck and face. Case was discussed with hospitalist attending and marine radio installer and servicer who are in agreement that patient is stable for discharge back onto his home oxygen, patient has reliable caregiver and pulse oximetry at home, strict return precautions given for worsening shortness of breath or respiratory status. Patient and who is at bedside are amenable with plan of care, grateful to be going home tonight. Hopefully he will continue to improve. Patient is already on Eliquis 5 mg p.o. b.i.d. for DVT/PE prophylaxis due to a COVID and increased risk, patient will continue with prescribed steroids and home oxygen at discharge from the emergency department.. 09/04 17:43 Order name: Basic Metabolic Panel; Complete Time: 18:21 cp 09/04 19:28 Interpretation: Normal except: GLUC 184; BUN 25; GFR 66. cp 09/04 17:43 Order name: CBC with Diff; Complete Time: 19:28 cp 09/04 17:43 Order name: LFT's; Complete Time: 18:21 cp 09/04 17:43 Order name: Magnesium; Complete Time: 18:22 09/04 17:43 Order name: NT PRO-BNP; Complete Time: 18:21 09/04 17:43 Order name: PT-INR; Complete Time: 18:21 09/04 17:43 Order name: Troponin (emerg Dept Use Only); Complete Time: 18:21 09/04 18:54 Order name: CRP; Complete Time: 19:40 la1 09/04 18:54 Order name: Procalcitonin la1 09/04 18:54 Order name: Lactate la1 09/04 18:54 Order name: Blood Culture Adult (2) 09/04 18:54 Order name: Lactate 09/04 18:54 Order name: Procalcitonin 09/04 17:43 Order name: XRAY Chest (1 view); Complete Time: 19:28 09/04 17:43 Order name: EKG; Complete Time: 17:44 cp 09/04 17:43 Order name: Cardiac monitoring; Complete Time: 17:50 cp 09/04 17:43 Order name: EKG - Nurse/Tech; Complete Time: 17:49 cp 09/04 17:43 Order name: IV Saline Lock; Complete Time: 17:49 09/04 17:43 Order name: Labs collected and sent; Complete Time: 17:49 cp 09/04 17:43 Order name: O2 Per Protocol; Complete Time: 17:49 cp 09/04 17:43 Order name: O2 Sat Monitoring; Complete Time: 17:49 cp 09/04 18:21 Order name: CT Chest For PE Angio; Complete Time: 19:08 cp 09/04 19:15 Order name: CBC Smear Scan; Complete Time: 19:28 EDMS EC:45 Rate is 103 beats/min. Rhythm is regular. NH interval is normal. QRS interval is cp normal. QT interval is normal. Interpreted by me. Reviewed by me. Administered Medications: 18:43 Drug: SOLU-Medrol 80 mg Route: IVP; Site: left forearm; zb 18:44 Drug: Pepcid 20 mg Route: IVP; Site: left forearm; zb 20:13 Not Given (verbal order per hosptialist ): Zosyn 3.375 grams IVPB once over 60 mins; zb (mix in NS 100 mL) 20:13 Not Given (verbal order per hospitalist ): Zithromax 500 mg IVPB once over 1 hrs; mix zb in 250 mL NS Disposition: 21:00 Chart complete. 09/05 18:03 Co-signature as Attending Physician, William Lee MD I agree with the assessment and aziza plan of care. 18:04 Co-signature as Attending Physician, William Lee MD I agree with the assessment and aziza plan of care. Disposition: 09/04/20 20:07 Discharged to Home. Impression: Emphysema, unspecified - subcutaneous, Coronavirus infection, unspecified. - Condition is Stable. - Discharge Instructions: COVID-19. - Medication Reconciliation Form, Thank You Letter, Antibiotic Education, Prescription Opioid Use form. - Follow up: Private Physician; When: 1 - 2 days; Reason: Recheck today's complaints. - Problem is an ongoing problem. - Symptoms have improved. Signatures: Dispatcher [employer] EDND William Lee MD MD cha Attema, Lee, CREDIT PORTFOLIO MANAGER-C CREDIT PORTFOLIO MANAGER-Cla1 William Rosas PA PA cp Brown, Zipporah, RN RN zb Corrections: (The following items were deleted from the chart) 09/04 19:07 19:06 Hospitalization Ordered by Yamil Juarez MD for Inpatient Admission. Preliminary la1 diagnosis is Respiratory failure, unspecified with hypoxia; Pneumonia due to other specified infectious organisms; Coronavirus infection, unspecified. Bed requested for Telemetry/MedSurg (Inpatient). Status is Inpatient Admission. Condition is Fair. Problem is an ongoing problem. Symptoms have improved. cp 19:25 18:54 BLOOD CULTURE*+BA.LAB.BRZ ordered. EDND EDMS 20:05 19:07 09/04/2020 19:06 Hospitalization Ordered by Florencio Cronin DO for Inpatient cp Admission. Preliminary diagnosis is Respiratory failure, unspecified with hypoxia; Pneumonia due to other specified infectious organisms; Coronavirus infection, unspecified. Bed requested for Telemetry/MedSurg (Inpatient). Status is Inpatient Admission. Condition is Fair. Problem is an ongoing problem. Symptoms have improved. la1 20:55 20:07 09/04/2020 20:07 Discharged to Home. Impression: Emphysema, unspecified - zb subcutaneous; Coronavirus infection, unspecified. Condition is Stable. Forms are Medication Reconciliation Form, Thank You Letter, Antibiotic Education, Prescription Opioid Use. Follow up: Private Physician; When: 1 - 2 days; Reason: Recheck today's complaints. Problem is an ongoing problem. Symptoms have improved. cp
[2020-09-04 19:15] LABS: Blood Morphology Comment NOT SEEN (NOT SEEN); Platelet Estimate ADEQ; White Blood Cell Scan OK (OK)
[2020-09-08 20:07] VITALS: TEMP 97
[2020-09-08 20:12] VITALS: BP 122/68; O2SAT 98
== END 2020-09-04 20:55 | disposition home or self-care (01) ==
LOC: ER 17:26
DX: J43.9 Emphysema, unspecified (principal); U07.1 COVID-19; I10 Essential (primary) hypertension; Z88.5 Allergy status to narcotic agent; Z91.02 Food additives allergy status
CPT/HCPCS: 93005; 87040 ×2; 85025; 80048; 36415; 83735; 85610; 80076; 83605; 84484; 84145; 83880; 86140; 71275; 71045; 96375; 96374; 99284; Q9967; J0456; J2543; J7050; J2920

== ENCOUNTER 2025-02-10 09:15 | Inpatient (IN) | payer BC, OTHER ==
[2025-02-10 09:42] LABS: Absolute Eosinophils 0.1 K/uL (0-0.5); Absolute Lymphocytes (CBC) 1.1 K/uL (0.7-4.9); Absolute Monocytes 0.5 K/uL (0.1-1.3); Absolute Neutrophil 5.1 K/uL (1.8-8.0); Basophils % 0.4 % (0-1.3); Eosinophils % 1.2 % (0-4.4); Hematocrit 39.8 % (39.6-49.0); Hemoglobin 13.7 g/dL (13.6-17.9); Lymphocytes % 16.2 % (15.3-44.8); MCHC 34.4 g/dL (32.0-36.0); MCV 90.1 fL (80-100); MPV 8.1 fL (7.6-11.3); Monocytes % 6.7 % (3.3-12.3); Neutrophils % 75.5 % (41.7-73.7); Nucleated Red Blood Cells % 0.1 % (0-0); Platelets 293 thou/uL (152-406); RBC Red Blood Cell Count 4.41 M/uL (4.33-5.43); Red Cell Distribution Width 14.1 % (12.1-15.2)
[2025-02-10 10:08] LABS: Albumin 3.3 g/dL (3.4-5.0); Albumin/Globulin Ratio 0.9 (1.1-1.8); Anion Gap 16.7 mEq/L (5.0-15.0); Bilirubin Total 0.3 mg/dL (0.2-1.0); Globulin 3.6 g/dL (2.3-3.5); Potassium 3.7 mEq/L (3.5-5.1); Protein, Total 6.9 g/dL (6.4-8.2)
--- NOTE | 2025-02-10 10:42 | EDPHYS ---
Physician Documentation [facility] Name: Gregg Olea Age: 64 yrs Sex: Male : 1960 Arrival Date: 02/10/2025 Time: 09:15 Bed 5 Private MD: ED Physician Alberto Marte HPI: 02/10 09:51 This 64 yrs old Male presents to ER via EMS with complaints of Chemical Exposure. ms3 09:55 64-year-old male with past medical history of anxiety, hypertension [place] [facility] [place] status post chlorine gas inhalation while at work. Patient states a flange was on bolted and chlorine gas was coming out he was trying to close. Patient states he was in and out of the chlorine cloud for approximately 20 minutes. Patient denies pain. Patient denies nausea, vomiting. Patient endorses shortness of breath prior to being placed on a nonrebreather.. Historical: - Allergies: 09:18 Codeine; bp 09:18 Red Dye; bp - PMHx: 09:18 Anxiety; Hypertension; bp - Immunization history:: Adult Immunizations up to date. - Infectious Disease History:: Denies. - Social history:: Smoking status: Patient denies any tobacco usage or history of. ROS: 09:55 Constitutional: Negative for fever, and chills. Cardiovascular: Negative for chest ms3 pain, and palpitations. 09:55 MS/Extremity: Negative for injury and deformity, Skin: Negative for injury, rash, and discoloration, 09:55 Respiratory: Positive for cough, shortness of breath, Exam: 09:55 Constitutional: This is a well developed, well nourished patient who is awake, alert, ms3 and in no acute distress. Chest/axilla: Normal chest wall appearance and motion. Nontender with no deformity. Cardiovascular: Regular rate and rhythm with a normal S1 and S2. No gallops, murmurs, or rubs. Normal PMI, no JVD. No pulse deficits. Respiratory: Lungs have equal breath sounds bilaterally, clear to auscultation and percussion. No rales, rhonchi or wheezes noted. No increased work of breathing, no retractions or nasal flaring. Abdomen/GI: Soft, non-tender, with normal bowel sounds. No distension or tympany. No guarding or rebound. No evidence of tenderness throughout. Skin: Warm, dry with normal turgor. Normal color with no rashes, no lesions, and no evidence of cellulitis. MS/ Extremity: Pulses equal, no cyanosis. Neurovascular intact. Full, normal range of motion. Vital Signs: 09:16 BP 92 / 78; Pulse 87; Resp 16; Temp 98; Pulse Ox 99% ; bp 09:30 BP 97 / 67; Pulse 82; Resp 18; Pulse Ox 100% on 15 lpm Non-rebreather mask; ph 10:32 BP 129 / 62; Pulse 69; Resp 18; Pulse Ox 100% on 15 lpm Nebulizer Mask; ph MDM: 09:21 Medical Screening Exam initiated ms3 09:55 Differential Diagnosis Lung irritation vs pulmonary edema vs Chlorine gas inhalation. ms3 11:11 Data reviewed: vital signs, nurses notes, lab test result(s), radiologic studies, and ms3 as a result, I will admit patient. Consideration of Admission/Observation Patient was admitted/placed on observation. Management of patient was discussed with the following: Hospitalist: Dr Allen. I considered the following discharge prescriptions or medication management in the emergency department Medications were administered in the Emergency Department. See MAR. Independent interpretation of the following test(s) in the Emergency Department X-Ray: My interpretation is CXR images reviewed by me show mild edema bibasilar. Historians other than the Patient: EMS: [employer]. Counseling: I had a detailed discussion with the patient and/or guardian regarding the historical points, exam findings, and any diagnostic results supporting the discharge/admit diagnosis, lab results, radiology results, the need for further work-up and treatment in the hospital. ED course: Patient's oxygen saturation 100% on a nonrebreather. Patient placed on nasal cannula at 2 L and increased up to 6 L with oxygen saturations starting at 86 on 2 L and improving to 89-90 on 6 L. Discussed with patient his necessity for admission. They understand and agree with plan. 02/10 09: Order name: CBC with Diff; Complete Time: 10:17 ms3 02/10 09:21 Order name: CMP; Complete Time: 10:17 ms3 02/10 10:34 Order name: ABG ms3 02/10 12:01 Order name: Basic Metabolic Panel EDMS 02/10 12:01 Order name: Basic Metabolic Panel EDMS 02/10 12:01 Order name: Basic Metabolic Panel EDMS 02/10 12:01 Order name: Basic Metabolic Panel EDMS 02/10 12:01 Order name: Basic Metabolic Panel EDMS 02/10 12:01 Order name: Basic Metabolic Panel EDMS 02/10 12:01 Order name: Basic Metabolic Panel EDMS 02/10 12:01 Order name: Basic Metabolic Panel EDMS 02/10 12:01 Order name: CBC with Automated Diff EDMS 02/10 12:01 Order name: CBC with Automated Diff EDMS 02/10 12:01 Order name: CBC with Automated Diff EDMS 02/10 12:01 Order name: CBC with Automated Diff EDMS 02/10 12:01 Order name: CBC with Automated Diff EDMS 02/10 12:01 Order name: CBC with Automated Diff EDMS 02/10 12:01 Order name: CBC with Automated Diff EDMS 02/10 12:02 Order name: CBC with Automated Diff EDMS 02/10 12:02 Order name: Magnesium EDMS 02/10 12:02 Order name: Magnesium EDMS 02/10 12:02 Order name: Magnesium EDMS 02/10 12:02 Order name: Magnesium EDMS 02/10 12:02 Order name: Magnesium EDMS 02/10 12:02 Order name: Magnesium EDMS 02/10 12:02 Order name: Magnesium EDMS 02/10 12:02 Order name: Magnesium EDMS 02/10 12:02 Order name: Phosphorus EDMS 02/10 12:02 Order name: Phosphorus EDMS 02/10 12:02 Order name: Phosphorus EDMS 02/10 12:02 Order name: Phosphorus EDMS 02/10 12:02 Order name: Phosphorus EDMS 02/10 12:02 Order name: Phosphorus EDMS 02/10 12:02 Order name: Phosphorus EDMS 02/10 12:02 Order name: Phosphorus EDMS 02/10 12:02 Order name: Troponin High Sensitivity EDMS 02/10 12:02 Order name: Troponin High Sensitivity EDMS 02/10 12:02 Order name: Troponin High Sensitivity EDMS 02/10 12:02 Order name: Troponin High Sensitivity EDMS 02/10 09:22 Order name: Chest Pa And Lat (2 Views) XRAY; Complete Time: 11:10 ms3 02/10 12:01 Order name: CONS Physician Consult EDMS Administered Medications: 09:23 Drug: NS 0.9% IV 1000 ml IV at 1000 ml once; to be given as a bolus over 60 minutes bp Route: IV; Rate: 1000 ml; Site: left forearm; 15:32 Follow up: IV Status: Completed infusion bp Disposition Summary: 02/10/25 10:41 Hospitalization Ordered Notes: Hospitalization Status: Inpatient Admission ms3 Condition: Stable ms3 Problem: new ms3 Symptoms: are unchanged ms3 Bed/Room Type: Standard ms3 Provider: Gena Allen(02/10/25 10:45) ms3 Location: Intensive Care Unit(02/10/25 14:05) bd Room Assignment: 7-(02/10/25 14:05) bd Diagnosis - Acute respiratory failure with hypoxia ms3 - Toxic effect of chlorine gas, accidental (unintentional), initial encounter ms3 Forms: - Medication Reconciliation Form ms3 - SBAR form ms3 - Leadership Thank You Letter ms3 Critical care time excluding procedures: 11:17 Critical care time: Bedside Care: 35 minutes, Family Intervention: 5 minutes. Total ms3 time: 40 minutes Signatures: Dispatcher [employer] EDMS Lisa Rehman Brian, RN RN Alberto Mar DO DO ms3 Corrections: (The following items were deleted from the chart) 09:22 09:22 CBC+H.LAB.BRZ ordered. EDMS EDMS 09:22 09:22 COMPREHENSIVE METABOLIC PANEL+C.LAB.BRZ ordered. EDMS EDMS 10:45 10:41 Yamil Juarez ms3 ms3 13:29 10:41 Intensive Care Unit ms3 bd 13:29 10:41 ms3 bd 14:05 13:29 [facility] ER HOLD bd bd 14:05 13:29 ERHOLD- bd bd
--- NOTE | 2025-02-10 10:42 | ER ---
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 Coronavirus screen: At bp this time, the client does not indicate any symptoms associated with coronavirus-19. Ebola Screen: No symptoms or risks identified at this time. Initial Sepsis Screen: Does the patient meet any 2 criteria? No. Patient's initial sepsis screen is negative. Does the patient have a suspected source of infection? No. Patient's initial sepsis screen is negative. Risk Assessment: Do you want to hurt yourself or someone else?. Onset of symptoms was February 10, 2025 at 08:45. Care prior to arrival: IV initiated. 20 GA, in the left antecubital area, Oxygen administered. via a non-rebreather mask. 09:16 Method Of Arrival: EMS: [facility] bp 09:16 Acuity: EMILY 3 bp Triage Assessment: 09:18 General: Appears distressed, comfortable, Behavior is calm, cooperative, appropriate bp for age. Pain: Denies pain. EENT: Reports THROAT IRRITATION. Neuro: No deficits noted. Cardiovascular: Rhythm is sinus rhythm. Respiratory: Airway IRRITATED Breath sounds are clear bilaterally. GI: No signs and/or symptoms were reported involving the gastrointestinal system. : No signs and/or symptoms were reported regarding the genitourinary system. Derm: No deficits noted. Musculoskeletal: No deficits noted. Historical: - Allergies: 09:18 Codeine; bp 09:18 Red Dye; bp - PMHx: 09:18 Anxiety; Hypertension; bp - Immunization history:: Adult Immunizations up to date. - Infectious Disease History:: Denies. - Social history:: Smoking status: Patient denies any tobacco usage or history of. Screenin:19 [facility] ED Fall Risk Assessment (Adult) History of falling in the last 3 months, bp including since admission No falls in past 3 months (0 pts) Confusion or Disorientation No (0 pts) Intoxicated or Sedated No (0 pts) Impaired Gait No (0 pts) Mobility Assist Device Used No (0 pt) Altered Elimination No (0 pt) Score/Fall Risk Level 0 - 2 = Low Risk Oriented to surroundings. Abuse screen: Denies threats or abuse. Denies injuries from another. Nutritional screening: No deficits noted. Tuberculosis screening: No symptoms or risk factors identified. Assessment: 09:20 General: SEE TRIAGE NOTE. bp 09:30 Reassessment: Spoke with poison control rep, Anatoly Case # [id number] who reports to ss provide supportive care, obtain chest XRAY. Pt may experience eye irritation. Administer bronchodilators as needed. 11:30 Reassessment: Patient appears in no apparent distress at this time. Patient is alert, bp oriented x 3, equal unlabored respirations, skin warm/dry/pink. 12:30 Reassessment: Patient appears in no apparent distress at this time. Patient is alert, bp oriented x 3, equal unlabored respirations, skin warm/dry/pink. 14:19 Reassessment: Patient appears in no apparent distress at this time. Patient is alert, bp oriented x 3, equal unlabored respirations, skin warm/dry/pink. Vital Signs: 09:16 BP 92 / 78; Pulse 87; Resp 16; Temp 98; Pulse Ox 99% ; bp 09:30 BP 97 / 67; Pulse 82; Resp 18; Pulse Ox 100% on 15 lpm Non-rebreather mask; ph 10:32 BP 129 / 62; Pulse 69; Resp 18; Pulse Ox 100% on 15 lpm Nebulizer Mask; ph ED Course: 09:16 Patient arrived in ED. bp 09:17 Triage completed. bp 09:18 Arm band placed on. bp 09:19 Patient has correct armband on for positive identification. bp 09:19 Maintain EMS IV. Dressing intact. Good blood return noted. Site clean \T\ dry. Gauge \T\ bp site: 20 R FA. Flushed with 10 mL NS. 09:20 Julien Campo, PIYUSH is Primary Nurse. bp 09:21 Alberto Marte DO is Attending Physician. ms3 10:12 Chest Pa And Lat (2 Views) XRAY In Process Unspecified. EDMS 10:40 Yamil Juarez MD is Hospitalizing Provider. ms3 10:45 Gena Allen MD is Hospitalizing Provider. ms3 Administered Medications: 09:23 Drug: NS 0.9% IV 1000 ml IV at 1000 ml once; to be given as a bolus over 60 minutes bp Route: IV; Rate: 1000 ml; Site: left forearm; 15:32 Follow up: IV Status: Completed infusion bp Medication: 10:33 VIS not applicable for this client. ph Outcome: 10:41 Decision to Hospitalize by Provider. ms3 15:32 Patient left the ED. bp Signatures: Dispatcher [employer] EDMS Elvira Maradiaga, PIYUSH RN Nicki Baldwin, PIYUSH RN Julien Campo, PIYUSH RN bp Alberto Marte DO DO ms3
--- NOTE | 2025-02-10 10:50 | RAD REPORT ---
Procedure: Chest Pa And Lat (2 Views) HISTORY: Gas exposure COMPARISON: 2023 FINDINGS: The lungs appear clear of acute infiltrate. No significant pleural effusion noted. The heart is normal size. IMPRESSION: No acute abnormality is displayed.
[2025-02-10] MEDS ORDERED: ACETAMINOPHEN 325 MG TABLET PO PRN (11:54)
[2025-02-10] MEDS: NA CHLORIDE 0.9% 1,000 ML IV SCH (12:00)
[2025-02-10 13:14] LABS: Arterial Blood Carboxyhemoglob 0.6 % (0-1.5); Blood Gas Oxyhemoglobin 95.8 % (94-97); Blood Gas THB 14.5 g/dl (12-18); Blood O2 Saturation 98.4 % (92-98.5)
[2025-02-10 16:07] VITALS: BMI 26.2
--- NOTE | 2025-02-10 17:24 | P.HP ---
Certification for Inpatient Patient admitted to: Inpatient With expected LOS: >2 Midnights <Kathia San - Last Filed: 02/10/25 17:25> Patient History Date of Service: 02/10/25 Reason for admission: acute hypoxic respiratory failure 2/2 toxic chlorine inhalation History of Present Illness: Gregg Olea is a 64 year old male with PMHx hypertension and anxiety not taking medications, presents to the ED after being involved in the Chlorine gas exposure. [place] ground [place] when the Chlorine gas was accidentally opened and was present in the "chlorine cloud" for more than 20 mintues. He reports initially being short of breath with light chest pain. Upon arrival to the ED, he was placed on a nonrebreather, Chest xray reports "No acute abnormality is displayed." Laboratory evaluation significant for anion gap 16.7, creatinine 1.43, GFR 55, glucose 126, AST 42, ABG: pH 7.4, pCO2 37.3, pO2 143 on nonrebreather, HCO3 22.5. On evaluation, on 10 L HF, Lungs sounds wheezing, nonproductive cough. Gregg will be admitted to ICU for close respiratory monitoring. - Past Medical/Surgical History Has patient received pneumonia vaccine in the past: No Diabetic: No -: Anxiety -: Htn -: He Rotator cuff sx -: ACL repair L Knee -: He Carpal tunnel sx - Family History Mother -: Cancer Notes: Breast Cancer Father -: Hypertension, Cancer, Other (see notes) Notes: Prostate Cancer, only has one kidney - Social History Smoking Status: Never smoker Alcohol use: Yes CD- Drugs: No Caffeine use: Yes Place of Residence: Home <Kathia San - Last Filed: 02/10/25 17:25> Date of Service: 02/10/25 <Gena Allen - Last Filed: 02/10/25 19:42> Allergies codeine Allergy (Severe, Verified 08/24/20 22:05) Hives red dye Allergy (Verified 08/24/20 21:45) Hives Home Medications: Multivitamin/Iron/Folic Acid [Centrum Adults Tablet] 1 tab PO DAILY 02/10/25 Review of Systems Other: per HPI <Kathia San - Last Filed: 02/10/25 17:25> Physical Examination - Vital Signs Temperature: 98 F Blood Pressure: 129/62 Pulse: 69 Respirations: 18 - Physical Exam General: Alert, Oriented x3 HEENT: Atraumatic, Normocephalic, PERRLA Neck: Supple, 2+ carotid pulse no bruit Respiratory: Clear to auscultation bilaterally, Normal air movement Cardiovascular: No edema, Normal pulses, Regular rate/rhythm Capillary refill: <2 Seconds Gastrointestinal: Soft and benign Musculoskeletal: No clubbing Integumentary: No rashes Neurological: Normal speech, Normal tone - Studies Laboratory Data (last 24 hrs) 02/10/25 02/10/25 09:28 09:28 WBC 6.80 Hgb 13.7 Hct 39.8 Plt Count 293 Sodium 140 Potassium 3.7 BUN 18 Creatinine 1.43 H Glucose 126 H Total Bilirubin 0.3 AST 42 H ALT 47 Alkaline Phosphatase 59 <Kathia San - Last Filed: 02/10/25 17:25> - Studies Laboratory Data (last 24 hrs) 02/10/25 02/10/25 09:28 09:28 WBC 6.80 Hgb 13.7 Hct 39.8 Plt Count 293 Sodium 140 Potassium 3.7 BUN 18 Creatinine 1.43 H Glucose 126 H Total Bilirubin 0.3 AST 42 H ALT 47 Alkaline Phosphatase 59 <Gena Allen - Last Filed: 02/10/25 19:42> Assessment and Plan - Plan Assessment and plan Acute hypoxic respiratory failure 2/2 toxic chlorine inhalation -admit to ICU - Oxygen protocol in place, on 10 L HF, attempt to wean - DuoNebs -Solumedrol 40mg Q8h - Monitor for infectious process -Incentive spirometer History of hypertension and anxiety - Patient reports no current medication DVT PPx SCDs Full code LOS to 3 days Discharge Plan: Home Plan to discharge in: 48 Hours - Advance Directives Does patient have a Living Will: No Does patient have a Durable POA for Healthcare: No <Kathia San - Last Filed: 02/10/25 17:25> Physician Review: Patient Assessed, Agree with Above Assessment and Plan <Gena Allen - Last Filed: 02/10/25 19:42>
[2025-02-10] MEDS: METHYLPREDNISOLONE 40 MG INJ ONE (19:27)
[2025-02-10] MEDS: METHYLPREDNISOLONE 40 MG INJ IV SCH (19:32)
[2025-02-10] MEDS: IPRATROPIUM BROM 0.5MG/2.5ML NEB SCH (20:10)
[2025-02-10] MEDS: ALBUTEROL 2.5 MG/3 ML NEB SOL NEB SCH (20:10)
[2025-02-11] MEDS: METHYLPREDNISOLONE 40 MG INJ ONE (00:32)
[2025-02-11 05:11] LABS: Absolute Lymphocytes (CBC) 0.2 K/uL (0.7-4.9); Absolute Neutrophil 6.4 K/uL (1.8-8.0); Basophils % 0.2 % (0-1.3); Eosinophils % 0.1 % (0-4.4); Hematocrit 40.5 % (39.6-49.0); Hemoglobin 14.1 g/dL (13.6-17.9); Lymphocytes % 3.7 % (15.3-44.8); MCH 31.4 pg (27.0-35.0); MCHC 34.9 g/dL (32.0-36.0); MCV 89.9 fL (80-100); Monocytes % 0.7 % (3.3-12.3); Neutrophils % 95.3 % (41.7-73.7); Platelets 264 thou/uL (152-406); Red Cell Distribution Width 14.1 % (12.1-15.2)
[2025-02-11 05:28] LABS: Anion Gap 12.1 mEq/L (5.0-15.0); Magnesium 2.4 mg/dL (1.6-2.4); Phosphorus 3.9 mg/dL (2.5-4.9); Potassium 4.1 mEq/L (3.5-5.1)
[2025-02-11 05:33] LABS: Band Neutrophils 5 % (0-1); Differential Total Cells Count 100; Lymphocytes 6 % (15-42); Reactive Lymphocytes 1 %; Segmented Neutrophils 88 % (40-80)
[2025-02-11 05:34] LABS: Monocytes 0 % (0-10)
[2025-02-11 05:35] LABS: Blood Morphology Comment NOT SEEN (NOT SEEN); Platelet Estimate ADEQ
[2025-02-11] MEDS ORDERED: HYDRALAZINE HCL 20 MG/ML VIAL IV PRN (07:55)
--- NOTE | 2025-02-11 08:01 | P.PN ---
Date of Service: 02/11/25 Subjective Able to wean down oxygen to 2 LNC Tachypneic throughout the night, improved this morning ROS 10 point ROS as noted above, otherwise negative Physical Exam General: Alert, Oriented x3, NAD afebrile HEENT: Atraumatic, Normocephalic, PERRLA Neck: Supple, 2+ carotid pulse no bruit Respiratory: Clear to auscultation bilaterally, Normal air movement, on 2 LNC Cardiovascular: Normal pulses, NSR Capillary refill: <2 Seconds Gastrointestinal: Soft on palpation Musculoskeletal: No clubbing Integumentary: No rashes Neurological: Normal speech, Normal tone Vitals Reviewed Problem list Acute hypoxic respiratory failure 2/2 toxic chlorine inhalation Cough History of hypertension and anxiety Assessment and Plan Acute hypoxic respiratory failure 2/2 toxic chlorine inhalation Nonproductive Cough Left shift -admit to ICU, While in the ED- O2 would drop to the 80s off oxygen support - Oxygen protocol in place, on 10 L HF, attempt to wean - DuoNebs -Solumedrol 40mg Q8h - Monitor for infectious process -Incentive spirometer - Neutrophils 95.3 increased from yesterday 75.5 - Dr. Benitez consulted, did not recommend antibiotic unless septic appearance History of hypertension and anxiety - Patient reports no current medication DVT PPx SCDs Full code LOS to 3 days Discharge Plan: Home Plan to discharge in: 48 Hours
[2025-02-11 08:37] VITALS: O2SAT 97
--- NOTE | 2025-02-11 09:37 | P.DS ---
Admission Date: 02/10/25 Discharge Date: 02/11/25 Disposition: ROUTINE DISCHARGE Discharge Condition: GOOD Reason for Admission: acute hypoxic respiratory failure 2/2 toxic chlorine inhalation Vital Signs/Physical Exam: Temp Pulse Resp BP Pulse Ox 98.6 F 91 H 20 155/96 H 95 02/11/25 04:00 02/11/25 07:00 02/11/25 07:00 02/11/25 07:00 02/11/25 07:00 Laboratory Data at Discharge: WBC 6.70 thou/uL (4.3-10.9) 02/11/25 04:40 Hgb 14.1 g/dL (13.6-17.9) 02/11/25 04:40 Hct 40.5 % (39.6-49.0) 02/11/25 04:40 Plt Count 264 thou/uL (152-406) 02/11/25 04:40 Sodium 139 mEq/L (136-145) 02/11/25 04:40 Potassium 4.1 mEq/L (3.5-5.1) 02/11/25 04:40 BUN 14 mg/dL (7-18) 02/11/25 04:40 Creatinine 0.94 mg/dL (0.70-1.30) 02/11/25 04:40 Glucose 156 mg/dL (74-106) H 02/11/25 04:40 Phosphorus 3.9 mg/dL (2.5-4.9) 02/11/25 04:40 Magnesium 2.4 mg/dL (1.6-2.4) 02/11/25 04:40 Total Bilirubin 0.3 mg/dL (0.2-1.0) 02/10/25 09:28 AST 42 U/L (15-37) H 02/10/25 09:28 ALT 47 U/L (16-61) 02/10/25 09:28 Alkaline Phosphatase 59 U/L (45-117) 02/10/25 09:28 Home Medications: Multivitamin/Iron/Folic Acid [Centrum Adults Tablet] 1 tab PO DAILY 02/10/25 Followup: George Garcia MD [Primary Care Provider] -
[2025-02-11 10:41] VITALS: BP 135/90; TEMP 97.3
--- NOTE | 2025-02-11 11:07 | P.DS ---
Admission Date: 02/10/25 Discharge Date: 02/11/25 Reason for Admission: acute hypoxic respiratory failure 2/2 toxic chlorine inhalation Brief History of Present Illness: Diagnosis Acute hypoxic respiratory failure 2/2 toxic chlorine inhalation Cough History of hypertension and anxiety Alcohol abuse HPI 02/10/2025 Gregg Olea is a 64 year old male with PMHx hypertension and anxiety not taking medications, presents to the ED after being involved in the Chlorine gas exposure. [place] when the Chlorine gas was accidentally opened and was present in the "chlorine cloud" for more than 20 mintues. He reports initially being short of breath with light chest pain. Upon arrival to the ED, he was placed on a nonrebreather, Chest xray reports "No acute abnormality is displayed." Laboratory evaluation significant for anion gap 16. 7, creatinine 1.43, GFR 55, glucose 126, AST 42, ABG: pH 7.4, pCO2 37.3, pO2 143 on nonrebreather, HCO3 22.5. On evaluation, on 10 L HF, Lungs sounds wheezing, nonproductive cough. Gregg will be admitted to ICU for close respiratory monitoring. Hospital Course: Acute hypoxic respiratory failure 2/2 toxic chlorine inhalation Nonproductive Cough Left shift Patient was admitted to ICU, While in the ED- O2 would drop to the 80s off oxygen support Patient was weaned off nonrebreather and high flow down to 2 L nasal cannula and this morning was able to tolerate room air Patient tolerated DuoNebs Patient tolerated Solumedrol 40mg Q8h Monitored for infectious process, remained afebrile this admission and WBC within normal limits Participated with incentive spirometer achieving 3000 cc and encouraged to continue use at discharge Dr. Benitez consulted, did not recommend antibiotic unless septic appearance History of hypertension and anxiety Patient reported no current medication On 02/11/2025, Gregg was seen on morning rounds hemodynamically stable and on room air. He reports coughing has greatly decreased. He has been able to achieve 3000 cc on the incentive spirometer. He has a history of alcohol abuse with no withdrawl symptoms this admission, discussed cessation with the use of community services. Dr. Benitez has evaluated and cleared for discharge with follow-up at his office in 1 week. Physical Exam General: Alert and Oriented x3, NAD, afebrile HEENT: Atraumatic, Normocephalic, PERRLA Neck: Supple, 2+ carotid pulse no bruit Respiratory: Clear BBS, Normal air movement, on RA Cardiovascular: Normal pulses, NSR Capillary refill: <2 Seconds Gastrointestinal: Soft on palpation Musculoskeletal: No clubbing Integumentary: No rashes Neurological: Normal speech, Normal tone <JaswinderKathia - Last Filed: 02/11/25 15:54> Admission Date: 02/10/25 Discharge Date: 02/11/25 <Gena Allen - Last Filed: 02/11/25 16:36> Disposition: ROUTINE DISCHARGE Discharge Condition: GOOD Vital Signs/Physical Exam: Temp Pulse Resp BP Pulse Ox 97.3 F 89 16 135/90 94 02/11/25 08:00 02/11/25 09:00 02/11/25 09:00 02/11/25 09:00 02/11/25 09:00 Laboratory Data at Discharge: WBC 6.70 thou/uL (4.3-10.9) 02/11/25 04:40 Hgb 14.1 g/dL (13.6-17.9) 02/11/25 04:40 Hct 40.5 % (39.6-49.0) 02/11/25 04:40 Plt Count 264 thou/uL (152-406) 02/11/25 04:40 Sodium 139 mEq/L (136-145) 02/11/25 04:40 Potassium 4.1 mEq/L (3.5-5.1) 02/11/25 04:40 BUN 14 mg/dL (7-18) 02/11/25 04:40 Creatinine 0.94 mg/dL (0.70-1.30) 02/11/25 04:40 Glucose 156 mg/dL (74-106) H 02/11/25 04:40 Phosphorus 3.9 mg/dL (2.5-4.9) 02/11/25 04:40 Magnesium 2.4 mg/dL (1.6-2.4) 02/11/25 04:40 Total Bilirubin 0.3 mg/dL (0.2-1.0) 02/10/25 09:28 AST 42 U/L (15-37) H 02/10/25 09:28 ALT 47 U/L (16-61) 02/10/25 09:28 Alkaline Phosphatase 59 U/L (45-117) 02/10/25 09:28 <Kathia San - Last Filed: 02/11/25 15:54> Vital Signs/Physical Exam: Temp Pulse Resp BP Pulse Ox 97.3 F 89 16 135/90 94 02/11/25 08:00 02/11/25 09:00 02/11/25 09:00 02/11/25 09:00 02/11/25 09:00 Laboratory Data at Discharge: WBC 6.70 thou/uL (4.3-10.9) 02/11/25 04:40 Hgb 14.1 g/dL (13.6-17.9) 02/11/25 04:40 Hct 40.5 % (39.6-49.0) 02/11/25 04:40 Plt Count 264 thou/uL (152-406) 02/11/25 04:40 Sodium 139 mEq/L (136-145) 02/11/25 04:40 Potassium 4.1 mEq/L (3.5-5.1) 02/11/25 04:40 BUN 14 mg/dL (7-18) 02/11/25 04:40 Creatinine 0.94 mg/dL (0.70-1.30) 02/11/25 04:40 Glucose 156 mg/dL (74-106) H 02/11/25 04:40 Phosphorus 3.9 mg/dL (2.5-4.9) 02/11/25 04:40 Magnesium 2.4 mg/dL (1.6-2.4) 02/11/25 04:40 Total Bilirubin 0.3 mg/dL (0.2-1.0) 02/10/25 09:28 AST 42 U/L (15-37) H 02/10/25 09:28 ALT 47 U/L (16-61) 02/10/25 09:28 Alkaline Phosphatase 59 U/L (45-117) 02/10/25 09:28 <Gena Allen - Last Filed: 02/11/25 16:36> <Kathia San - Last Filed: 02/11/25 15:54> Physician Review: Patient Assessed, Agree with Above Assessment and Plan <Gena Allen - Last Filed: 05/21/25 16:36> Home Medications: Multivitamin/Iron/Folic Acid [Centrum Adults Tablet] 1 tab PO DAILY 02/10/25 Physician Discharge Instructions: PROBLEM: Hypoxia secondary to chlorine inhalation GOAL: Clear understanding of disease process INSTRUCTIONS: Return to ER for shortness of breath, chest pain Follow up with PCP in 7-10 days Diet: Heart Healthy Activity: As Tolerated DME DME: Date Ordered: Name of Company: [employer] Services Needed: None Name of Company: Date or Referral: IMMUNIZATION Influenza Vaccine Indicated: Influenza Vaccine Given: Date Given: Pneumonia Vaccine Indicated: No Pneumonia Vaccine Given: Date Given: Followup: George Garcia MD [Primary Care Provider] -
--- NOTE | 2025-02-12 08:06 | P.CNS ---
Date of Consult: 02/12/25 Chief Complaint: Respiratory distress from chlorine exposure History of Present Illness: Patient is 64 years of age well-known to me he has a history of chronic cough has not been drinking for quite some time apparently he was exposed to recent chlorine gas exposure came in with respiratory distress patient was wearing mask at the time of my evaluation he was doing well denies any shortness of breath cough congestion or chest tightness compliant with his inhalers at home Allergies codeine Allergy (Severe, Verified 08/24/20 22:05) Hives red dye Allergy (Verified 08/24/20 21:45) Hives Home Medications: Multivitamin/Iron/Folic Acid [Centrum Adults Tablet] 1 tab PO DAILY 02/10/25 - Past Medical/Surgical History Diabetic: No -: Anxiety -: Htn -: copd -: History of alcohol abuse -: He Rotator cuff sx -: ACL repair L Knee -: He Carpal tunnel sx - Family History Mother Medical History: Cancer Notes: Breast Cancer Father Medical History: Hypertension, Cancer, Other (see notes) Notes: Prostate Cancer, only has one kidney - Social History Smoking Status: Unknown if ever smoked Alcohol use: Yes CD- Drugs: No Caffeine use: Yes Place of Residence: Home Review of Systems 10-point ROS is otherwise unremarkable Physical Examination Temp Pulse Resp BP Pulse Ox 97.3 F 89 16 135/90 94 02/11/25 08:00 02/11/25 09:00 02/11/25 09:00 02/11/25 09:00 02/11/25 09:00 General: Alert, Oriented x3 Neck: Supple Respiratory: Clear to auscultation bilaterally Cardiovascular: No edema, Regular rate/rhythm, Normal S1 S2 - Problems (1) Respiratory distress Status: Acute Plan: Patient is 64 years of age with a history ofchronic cough and normal PFT admitted with respiratory distress secondary to chlorine gas exposure he seems to have recovered labs chemistries all reviewed chest x-ray is clear patient is doing well he denies any respiratory distress stable for discharge he is to continue with his bronchodilators prn
== END 2025-02-11 10:40 | disposition home or self-care (01) | DRG 917 ==
LOC: ER 09:15 → ERHOLD 11:54 → 3RD-ICU 14:32
PROVIDERS: ADMIT Family Medicine; ATTEND Family Medicine
PROC: 4A033R1 Measurement of Arterial Saturation, Peripheral, Percutaneous Approach (ICD-10-PCS; principal; 2025-02-10)
DX: T59.4X1A Toxic effect of chlorine gas, accidental (unintentional), initial encounter (principal); J96.01 Acute respiratory failure with hypoxia; I10 Essential (primary) hypertension; F10.10 Alcohol abuse, uncomplicated; R05.9 Cough, unspecified; Z88.5 Allergy status to narcotic agent
CPT/HCPCS: 36415; 36600; 71046; 80048; 80053; 82805; 83735; 84100; 84484; 85025; 94010; 94640; 96360; 96361; 99284; J2919; J7030; J7613; J7644